=== PATIENT | female | born 1955 | race Caucasian/White ===

== ENCOUNTER 2018-08-25 08:29 | Observation (INO) | payer OTHER ==
[~2018-08-25] VITALS: Ht 170.2 cm; Wt 77.1 kg
--- OUTSIDE RECORDS SUMMARY | 2018-08-25 08:32 | XMS REPORT | Encounter Summary ---
Author Organization Unknown Address [address] [place] [address] Phone [phone] Reason for Visit Medical Complaint Instructions 1. Cough ProAir HFA 90 mcg/actuation aerosol inhaler benzonatate 100 mg capsule cough: care instructions Discussion Note See handout Plan of Care Patient Instructions See handout Reminders Provider Appointments None recorded. Lab None recorded. Referral None recorded. Procedures None recorded. Surgeries None recorded. Imaging None recorded. Medications Name Start Date benzonatate 100 mg capsule clonazepam 0.5 mg tablet TK 1 T PO BID AND BEDTIME PRN escitalopram 20 mg tablet ProAir HFA 90 mcg/actuation aerosol inhaler INHALE 2 PUFFS PO EVERY 4 HOURS Medications Administered None recorded. Vitals Height Weight BMI Blood Pressure 5 ft 6 in 160 lbs 25.8 122/80 Lab Results None recorded. Allergies Name Reaction Severity Onset Penicillins Other Problems Name Status Onset Date Source Cough Active Encounter Procedures Date Name Performed by 08/24/1989 Hysterectomy Information not available Vaccine List None recorded. Social History Smoking Status Never Smoker Past Encounters 06/07/2016 Cough Leonel Greene, [facility]: [address] [place] [address], Ph. History of Present Illness Cough Reported By: Patient HPI: Location: chest, nasal/sinus. Quality: congested, dry cough. Duration: symptoms lasting over 2 weeks. Severity: mild. Onset/Timing: gradual. Context: no sick contacts, no foreign travel, non-smoker. Modifying factors: OTC medication. Associated Symptoms: no sputum production, no sweats, no significant weight gain, no significant weight loss, no morning cough, no vomiting, no diarrhea, no rash, no nausea, chest pain, shortness of breath, wheezing Notes: Highest fever reported 100.0 Review of Systems:ROS as noted in the HPI Review of Systems Basic Reported By: Patient Physical Exam Adult Basic Reported By: Patient Constitutional: General Appearance: healthy-appearing, well-nourished, well-developed. Level of Distress: NAD. Ambulation: ambulating normally Psychiatric: Mental Status: active and alert. Orientation: to time, to place, to person Eyes: Lids and Conjunctivae: non-injected, no discharge, no pallor. Pupils: PERRLA. Corneas: grossly intact. EOM: EOMI. Lens: clear. Sclerae: non-icteric. Vision: acuity grossly intact Ata-Wkca-Yjopd-Throat: Ears: no lesions on external ear, no outer ear tenderness, EACs clear, TMs clear. Hearing: no hearing loss. Nose: no lesions on external nose, nares patent, no septal deviation, nasal passages clear, no sinus tenderness, no nasal discharge. Lips, Teeth, and Gums: no mouth or lip ulcers, no bleeding gums, normal dentition. Oropharynx: moist mucous membranes, no erythema, no exudates, tonsils not enlarged Neck: Lymph Nodes: no cervical LAD, no supraclavicular LAD Lungs: Respiratory effort: no dyspnea, no tachypnea, no use of accessory muscles, no intercostal retractions. Auscultation: inspiratory wheezing Cardiovascular: Heart Auscultation: RRR, no murmurs Neurologic: Gait and Station: normal gait, normal station Skin: Inspection and palpation: no rash, no lesions, no ulcer, no abnormal nevi, no induration, no nodules, good turgor, no jaundice
--- OUTSIDE RECORDS SUMMARY | 2018-08-25 08:32 | XMS REPORT | Encounter Summary ---
Author Organization Unknown Address [address] [place] [address] Phone [phone] Reason for Visit Medical Complaint Instructions 1. Upper respiratory infection upper respiratory infection (cold): care instructions rapid flu (A+B) 2. Feeling feverish 3. Headache headache: care instructions Discussion Note Pt is in NAD; Verbalizes understanding of all instructions with no questions at this time. Plan of Care Patient Instructions Take over the counter fluticasone as needed for nasal congestion and runny nose. Canon one spray in each nostril twice a day. Take a warm, steamy shower, blow your nose thereafter, and spray in each nostril. Tilt your head up for about 10 seconds and breath through your mouth. Do not sniff or snort the medication in or else the medication will go to your throat and not be absorbed appropriately. Alternate with Ibuprofen (advil) and acetaminophen (tylenol) every 4hrs as needed for pain/fever/headache. Proper hydration and rest.Do not share any utensils/cups, no kissing, recommend hand washing after coughing/sneezing/blowing nose and cover face when you do so Take medications as prescribed. Return to clinic or follow up with your PCP within 2-3 days if symptoms worsen as discussed. Reminders Provider Appointments None recorded. Lab Rapid Flu (A+B) 03/20/2017 [facility] Referral None recorded. Procedures None recorded. Surgeries None recorded. Imaging None recorded. Medications Name Start Date Enstilar 0.005 %-0.064 % topical foam MAMADOU UTD BID TO RASH ON LEGS ergocalciferol (vitamin D2) 50,000 unit capsule escitalopram 20 mg tablet levocetirizine 5 mg tablet meloxicam 7.5 mg tablet TK 1 T PO QD WITH FOOD mupirocin 2 % topical ointment Prevnar 13 (PF) 0.5 mL intramuscular syringe ADM 0.5ML IM UTD ProAir HFA 90 mcg/actuation aerosol inhaler INHALE 2 PUFFS PO EVERY 4 HOURS valacyclovir 1 gram tablet Medications Administered None recorded. Vitals Height Weight BMI Blood Pressure 5 ft 6 in 165 lbs 26.6 kg/m2 114/70 mm[Hg] Lab Results Date Name Specimen Result Interpretation Description Value Range Status Address Rapid Flu (A+B) Influenza a negative [facility]: [address] [place] [address] Influenza B negative [facility]: [facility] Allergies Code Code System Name Reaction Severity Onset Penicillins Other Problems Name Status Onset Date Source Cough Active Encounter Procedures Date Name Performed by 08/24/1989 Hysterectomy Information not available Vaccine List Vaccine Type influenza, unspecified formulation 08/24/2016 pneumococcal, unspecified formulation 01/22/2017 Social History Smoking Status Never Smoker Past Encounters 03/20/2017 Upper Respiratory Infection; Feeling Feverish; Headache Candida Javed [facility]: [address] [place] [address], Ph. History of Present Illness Headache Reported By: Patient HPI: Location: frontal. Quality: not the worst headache ever, similar to previous headaches, throbbing. Severity: moderate, pain level 6/10. Duration: intermittent. Onset/Timing: worse, gradual. Context: not related to trauma. Modifying factors: sleep, rest. Associated Symptoms: no vomiting, no sensitivity to light, tearing/watery eyes, no confusion, no slurred speech, no preceeding aura, no double vision, normal feeling/sensation, no motor paralysis, no dizziness, no sleep disturbances, no nosebleeds, no hoarseness, no sore throat, no hearing loss, fever/chills, muscle aches, headache; rhinorrhea Jumbfua-Tndld-Umi Reported By: Patient HPI: Duration: 2 days. Severity: subjective temperature. Context: no ill contacts, no tick/insect bites, no recent travel, no new medications. Associated Symptoms: no rash, no lethargy, fever/chills, headache, muscle aches, cold symptoms, tired (fatigue), nasal discharge. Modifying Factors nothing gives relief Note:
Review of Systems:ROS as noted in the HPI Review of Systems Basic Reported By: Patient Physical Exam Adult Basic, Adult Female Complete, Adult Male Complete Reported By: Patient Constitutional: General Appearance: healthy-appearing, well-nourished, well-developed. Level of Distress: NAD. Ambulation: ambulating normally Psychiatric: Mental Status: active and alert. Orientation: to time, to place, to person Eyes: Lids and Conjunctivae: non-injected, no discharge, no pallor. Pupils: PERRLA. Corneas: grossly intact. EOM: EOMI. Lens: clear Mqx-Wvgt-Xtaaa-Throat: Ears: no lesions on external ear, no outer ear tenderness, EACs clear, TMs clear. Nose: no lesions on external nose, nares patent, no septal deviation, nasal passages clear, no sinus tenderness, nasal d ischarge--rhinorrhea, post nasal drip. Lips, Teeth, and Gums: no mouth or lip ulcers, no bleeding gums, normal dentition. Oropharynx: moist mucous membranes, no erythema, no exudates, tonsils not enlarged Neck: Neck: supple, FROM; Negative Brudinski's sign. Lymph Nodes: anterior cervical LAD Lungs: Respiratory effort: no dyspnea, no tachypnea, no use of accessory muscles, no intercostal retractions. Auscultation: breath sounds normal, good air movement Cardiovascular: Heart Auscultation: RRR, no murmurs Neurologic: Gait and Station: normal gait, normal station. Cranial Nerves: grossly intact. Sensation: grossly intact. Reflexes: DTRs 2+ bilaterally throughout; Negative Kernig's sign. Coordination and Cerebellum: [id number]-jt-tghy intact
--- OUTSIDE RECORDS SUMMARY | 2018-08-25 08:32 | XMS REPORT | Continuity of Care Document ---
Author Author [facility] Interface Address Unknown Phone Unavailable Problems Problem Status Onset Date Classification Date Reported Comments Source CCL/ LHC Active 05/24/2018 [facility] Z12.31 - ENCNTR SCREEN MAMMOGRAM FOR MA Active 04/13/2018 [facility] Upper respiratory infection 03/20/2017 Diagnosis 03/20/2017 [facility] Feeling feverish 03/20/2017 Diagnosis 03/20/2017 [facility] Headache 03/20/2017 Diagnosis 03/20/2017 [facility] Cough Problem 03/20/2017 [facility] Medications Medication Details Route Status Patient Instructions Ordering Provider Order Date Source betamethasone dipropionate 0.643 MG/ML / calcipotriene 0.05 MG/ML Topical Foam [Enstilar] Enstilar 0.005 %-0.064 % topical foam MAMADOU UTD BID TO RASH ON LEGS Active [facility] Ergocalciferol 47658 UNT Oral Capsule ergocalciferol (vitamin D2) 50,000 unit capsule Active [facility] Escitalopram 20 MG Oral Tablet escitalopram 20 mg tablet Active [facility] levocetirizine dihydrochloride 5 MG Oral Tablet levocetirizine 5 mg tablet Active [facility] meloxicam 7.5 MG Oral Tablet meloxicam 7.5 mg tablet TK 1 T PO QD WITH FOOD Active [facility] Mupirocin 0.02 MG/MG Topical Ointment mupirocin 2 % topical ointment Active [facility] 0.5 ML Streptococcus pneumoniae serotype 1 capsular antigen diphtheria [id number] protein conjugate vaccine 0.0044 MG/ML / Streptococcus pneumoniae serotype 14 capsular antigen diphtheria [id number] protein conjugate vaccine 0.0044 MG/ML / Streptococcus pneumoniae serotype 18C capsular antigen diphtheria [id number] protein conjugate vaccine 0.0044 MG/ML / Streptococcus pneumoniae serotype 19A capsular antigen d iphtheria QOE375 protein conjugate vaccine 0.0044 MG/ML / Streptococcus pneumoniae serotype 19F capsular antigen diphtheria [id number] protein conjugate vaccine 0.0044 MG/ML / Streptococcus pneumoniae serotype 23F capsular antigen diphtheria PHW715 protein conjugate vaccine 0.0044 MG/ML / Streptococcus pneumoniae serotype 3 capsular antigen diphtheria CMY534 protein conjugate vaccine 0.0044 MG/ML / Streptococcus pneumoniae serotype 4 capsular antigen diphtheria EQG510 protein conjugate vaccine 0.0044 MG/ML / Streptococcus pneumoniae serotype 5 capsular antigen diphtheria SWO767 protein conjugate vaccine 0.0044 MG/ML / Streptococcus pneumoniae serotype 6A capsular antigen diphtheria VVA061 protein conjugate vaccine 0.0044 MG/ML / Streptococcus pneumoniae serotype 6B capsular antigen diphtheria WCA403 protein conjugate vaccine 0.0088 MG/ML / Streptococcus pneumoniae serotype 7F capsular antigen diphtheria [id number] protein conjugate vaccine 0.0044 MG/ML / Streptococcus pneumoniae serotype 9V capsular antigen diphtheria [id number] protein conjugate vaccine 0.0044 MG/ML Prefilled Syringe [Prevnar 13] Prevnar 13 (PF) 0.5 mL intramuscular syringe ADM 0.5ML IM UTD Active [facility] 200 ACTUAT Albuterol 0.09 MG/ACTUAT Metered Dose Inhaler [ProAir] ProAir HFA 90 mcg/actuation aerosol inhaler INHALE 2 PUFFS PO EVERY 4 HOURS Active [facility] valacyclovir 1000 MG Oral Tablet valacyclovir 1 gram tablet Active [facility] benzonatate 100 MG Oral Capsule benzonatate 100 mg capsule Active [facility] Clonazepam 0.5 MG Oral Tablet clonazepam 0.5 mg tablet TK 1 T PO BID AND BEDTIME PRN Active [facility] Allergies, Adverse Reactions, Alerts Substance Category Reaction Severity Reaction type Status Date Reported Comments Source Penicillins Other Allergy to substance 06/07/2016 [facility] Immunizations Immunization Date Given Site Status Last Updated Comments Source pneumococcal, unspecified formulation 01/22/2017 completed [facility] influenza, unspecified formulation 08/24/2016 completed [facility] Results Order Name Results Value Reference Range Date Interpretation Comments Source Breast Complete Uni US Breast Complete Uni US COMPLETE ULTRASOUND OF LEFT BREAST AND AXILLA: 05/24/2018 CLINICAL: /R92.8 Other Abnormal And Inconclusive Findings On Diagnostic Imaging Of Breast. COMPARISON:Comparison is made to exams dated: 05/24/2018 mammogram and 05/06/2018 mammogram - [facility]. TECHNIQUE: Color flow and real-time ultrasound of the left breast four quadrants and axilla regions were performed on the areas of interest. FINDINGS: There is a 0.9 cm x 0.7 cm x 0.5 cm cluster of cysts in the left breast at 3 o'clock anterior depth 4 cm from the nipple. This correlates with mammography findings. Color flow imaging demonstrates that there is no vascularity present. No abnormalities were seen sonographically in the left axilla. IMPRESSION: PROBABLY BENIGN RECOMMENDATION:The 0.9 cm x 0.7 cm x 0.5 cm cluster of cysts in the left breast is probably benign. A follow-up ultrasound in 6 months is recommended to demonstrate stability.(11/23/2018) This exam was interpreted at [id number] for [facility]. Professional services are provided by the [facility] M[facility] Division of Diagnostic Imaging. Rico Alegria M.D., cm/penrad:05/24/2018 14:16:37 [employer] Electrical Designer(s): Erika Shoemaker [facility] letter sent: BI-RADS 3 Ultrasound BI-RADS: 3 Probably benign 05/24/2018 - - Read by: Nils Gomez MD Dictated Date/time: 05/24/18 14:16 Electronically Signed by: Nils Gomez MD 05/24/18 14:16 FINAL REPORT DAISY [facility] Breast Mammo Diag UNI incl CAD MA Breast Mammo Diag UNI incl CAD MA UNILATERAL LEFT DIGITAL DIAGNOSTIC MAMMOGRAM WITH CAD: 05/24/2018 CLINICAL: R92.8 Other Abnormal And Inconclusive Findings On Diagnostic Imaging Of Breast/R92.8 Other Abnormal And Inconclusive Findings On Diagnostic Imaging Of Breast. Current study was evaluated with a Computer Aided Detection (CAD) system. COMPARISON:Comparison is made to exam dated: 05/06/2018 mammogram - [facility]. TECHNIQUE: Mammographic views were obtained using digital acquisition. Current study was also evaluated with a Computer Aided Detection (CAD) system. FINDINGS: There are scattered fibroglandular densities in left breast. There is an 8 mm oval equal density mass with an indistinct margin in the left breast at 3 o'clock middle depth 5 cm from the nipple. No other significant masses or calcifications are seen in the breast. IMPRESSION: INCOMPLETE: NEEDS ADDITIONAL IMAGING EVALUATION RECOMMENDATION:The 8 mm oval equal density mass in the left breast is indeterminate. An ultrasound is recommended. This exam was interpreted at [id number] for [facility] [place], SL 15. Professional services are provided by the [facility] Division of Diagnostic Imaging. Rico Alegria M.D. cm/penrad:05/24/2018 14:15:30 [employer] Electrical Designer(s): Andria Reardon RT(R)(M), [facility] Mammogram BI-RADS: 0 Indeterminate 05/24/2018 - - Read by: Nils Gomez MD Dictated Date/time: 05/24/18 14:15 Electronically Signed by: Nils Gomez MD 05/24/18 14:15 FINAL REPORT BRANDON DAISY Cerda Breast Mammo Scrn CITLALY incl CAD MA Breast Mammo Scrn CITLALY incl CAD MA BILATERAL DIGITAL SCREENING MAMMOGRAM WITH CAD: 05/06/2018 CLINICAL: Encounter For Screening Mammogram For Malignant Neoplasm Of Breast/Z12.31. Current study was evaluated with a Computer Aided Detection (CAD) system. COMPARISON:No prior exams were available for comparison. TECHNIQUE: Mammographic views were obtained using digital acquisition. Current study was also evaluated with a Computer Aided Detection (CAD) system. FINDINGS: There are scattered fibroglandular densities in both breasts. There is an 8 mm oval equal density mass with an indistinct margin in the left breast at 2 o'clock middle depth 5 cm from the nipple. No other significant masses, calcifications, or other findings are seen in either breast. IMPRESSION: INCOMPLETE: NEEDS ADDITIONAL IMAGING EVALUATION RECOMMENDATION:The 8 mm oval equal density mass in the left breast is indeterminate. Diagnostic mammography views as well as an ultrasound are recommended unless previous films are received and show no significant interval change. This exam was interpreted at [id number] for [facility] 15. Professional services are provided by the [facility] Division of Diagnostic Imaging. Rico Alegria M.D. cm/penrad:05/06/2018 08:45:28 [employer]oc[employer] Electrical Designer(s): RT Al[facility](R)(M), [facility] [place] sent: BI-RADS 0 Mammogram BI-RADS: 0 Indeterminate 05/06/2018 - - Read by: Nils Gomez MD Dictated Date/time: 05/06/18 08:45 Electronically Signed by: Nils Gomez MD 05/06/18 08:45 FINAL REPORT MH DAISY [facility] Influenza A negative 03/20/2017 [facility] Influenza B negative 03/20/2017 [facility] Vital Signs Vital Sign Value Date Comments Source Diastolic (mm Hg) 70 03/20/2017 [facility] Height 66 03/20/2017 [facility] Systolic (mm Hg) 114 03/20/2017 [facility] Weight 165 03/20/2017 [facility] Diastolic (mm Hg) 80 06/07/2016 [facility] Height 66 06/07/2016 [facility] Systolic (mm Hg) 122 06/07/2016 [facility] Weight 160 06/07/2016 [facility] Encounters Location Location Details Encounter Type Encounter Number Reason For Visit Attending Provider ADM Date DC Date Status Source [place] - [facility] - [id number] Rodas: [address] [place] [address], Ph. [id number] Leonel Greene 06/07/2016 [facility] [place] - [facility] [id number] FRANCOISE [facility]: [address] [place] [address], Ph. [id number] Candida Javed 03/20/2017 [facility] Procedures Procedure Code Date Perfomer Comments Source Hysterectomy 08/24/1989 [facility]
[2018-08-25] MEDS ORDERED: SODIUM CHLORIDE 0.9% 1000ML 1,000 ML IV STA (08:51)
[2018-08-25 09:31] LABS: BASOPHILS # (AUTO) 0.1 (0.0-0.1); BASOPHILS % 0.6 % (0.0-1.0); EOSINOPHILS # (AUTO) 0.1 (0.0-0.4); EOSINOPHILS % 1.5 % (0.0-6.0); HEMATOCRIT 38.6 % (34.2-44.1); HEMOGLOBIN 13.1 g/dL (12.0-16.0); LYMPHOCYTES # (AUTO) 1.4 (1.0-3.2); LYMPHOCYTES % 16.3 % (18.0-39.1); MEAN CORPUSCULAR HEMOGLOBIN 30.7 pg (28-32); MEAN CORPUSCULAR HGB CONC 33.9 g/dL (31-35); MEAN CORPUSCULAR VOLUME 90.4 fL (81-99); MONOCYTES # (AUTO) 0.8 (0.2-0.8); MONOCYTES % 8.6 % (4.4-11.3); NEUTROPHILS # (AUTO) 6.4 (2.1-6.9); NEUTROPHILS % 72.8 % (38.7-80.0); PLATELET COUNT 247 x10e3/uL (140-360); RED BLOOD COUNT 4.27 x10e6/uL (3.6-5.1); RED CELL DISTRIBUTION WIDTH 13.8 % (11.7-14.4)
[2018-08-25] MEDS ORDERED: KEPPRA500 MG PO (09:31)
[2018-08-25] MEDS ORDERED: FOLIC ACID1 MG PO (09:31)
[2018-08-25] MEDS ORDERED: LEVAQUIN500 MG PO (09:31)
[2018-08-25] MEDS ORDERED: PHENYTOIN SODI300 MG PO (09:31)
[2018-08-25] MEDS ORDERED: METHOTREXATE2.5 MG PO (09:31)
[2018-08-25 09:44] LABS: INR 1.04; PROTHROMBIN TIME 14.5 seconds (11.9-14.5)
[2018-08-25 09:45] LABS: PARTIAL THROMBOPLASTIN TIME 25.5 seconds (23.8-35.5)
[2018-08-25 09:53] LABS: ACETAMINOPHEN < 3 ug/mL (10-30); SALICYLATE < 5.0 mg/dL (0-30)
[2018-08-25 09:55] LABS: ALANINE AMINOTRANSFERASE 22 IU/L (0-55); ALBUMIN 3.5 g/dL (3.5-5.0); ALKALINE PHOSPHATASE 54 IU/L (40-150); ANION GAP 17.2 mmol/L (8-16); BLOOD UREA NITROGEN 13 mg/dL (7-26); BUN/CREATININE RATIO 17 (6-25); CALCIUM 9.1 mg/dL (8.4-10.2); CARBON DIOXIDE 21 mmol/L (22-29); CHLORIDE 104 mmol/L (98-107); CREATINE KINASE 100 IU/L (29-168); CREATININE, SERUM 0.75 mg/dL (0.57-1.11); EST GLOMERULAR FILTRATION RATE > 60 ML/MIN (60-); GLUCOSE 71 mg/dL (74-118); MAGNESIUM 2.1 MG/DL (1.3-2.1); POTASSIUM 3.2 mmol/L (3.5-5.1); SODIUM 139 mmol/L (136-145)
--- NOTE | 2018-08-25 10:09 | Diagnostic Imaging Report ---
EXAMINATION: CHEST SINGLE (PORTABLE) INDICATION: Altered mental status, shortness of breath. COMPARISON: None FINDINGS: TUBES and LINES: None. LUNGS: Lungs are well inflated. There is mild patchy left basilar opacity. No evidence of lobar consolidation or pulmonary edema. PLEURA: No pleural effusion or pneumothorax. HEART AND MEDIASTINUM: The cardiomediastinal silhouette is unremarkable. BONES AND SOFT TISSUES: No acute osseous lesion. Soft tissues are unremarkable. UPPER ABDOMEN: No free air under the diaphragm. IMPRESSION: Mild patchy left basilar opacity, likely atelectasis. However aspiration can have a similar appearance in the appropriate clinical context. Signed by: Dr. Edwardo De La Torre MD on 08/25/2018 10:06 AM
[2018-08-25 10:15] LABS: THYROID STIMULATING HORMONE 0.973 uIU/mL (0.350-4.940)
--- NOTE | 2018-08-25 10:19 | Diagnostic Imaging Report ---
Exam: Head CT without contrast History: Altered mental status, seizures Comparison studies: Head CT 05/26/2015. Technique: Axial images were obtained from the skull base to the vertex. Coronal and sagittal images reconstructed from the axial data. Dose modulation, iterative reconstruction, and/or weight based adjustment of the mA/kV was utilized to reduce the radiation dose to as low as reasonably achievable. Radiation dose: Total DLP: 921 mGy*cm. Estimated effective dose: DLP x 0.015 Intravenous contrast: None Findings: Scalp: No abnormalities. Bones: No fractures, blastic or lytic lesions. Brain sulci: Appropriate for age. Ventricles: Normal in size and configuration. No hydrocephalus. Extra-axial spaces: No masses, no fluid collection. Parenchyma neck axial spaces: Ill-defined 1.4 cm lesion in the left anteromedial temporal lobe is slightly hyperintense to harris matter and is without surrounding edema and does not result in significant mass effect. Unclear if this is an intra-axial cortical based lesion or possibly extra-axial arising from the tentorium. Diagnostic considerations would include cortical-based primary NURSING EDUCATION SPECIALIST neoplasm, meningioma (if extra-axial axial) or possibly small vascular malformation. Metastasis is felt less likely in the absence of significant surrounding edema. In the context of lesion hyperdensity, lymphoma is also a consideration. No other mass, acute hemorrhage or acute cortical vascular infarcts. Sellar/suprasellar region: No abnormalities. Craniocervical junction: Patent foramen magnum. No Chiari one malformation. IMPRESSION: 1. New nonspecific 1.4 cm left anteromedial occipital lobe lesion without surrounding edema or mass effect as described. Recommend brain MRI with IV contrast to further evaluate. 2. No other intracranial abnormalities or significant changes from the prior head CT of 05/26/2015. Signed by: Dr. Donn Noble M.D. on 08/25/2018 10:16 AM
[2018-08-25 10:58] LABS: ERYTHROCYTE SEDIMENTATION RATE 16 mm/hr (0-20)
[2018-08-25] MEDS ORDERED: D5.45%NS/KCL 20MEQ 1,000 ML IV ONE (11:30)
[2018-08-25 12:01] LABS: BILIRUBIN,URINE 1+ (NEGATIVE); CLARITY,URINE SL CLOUDY (CLEAR); COLOR,URINE YELLOW (YELLOW); KETONES,URINE 2+ (NEGATIVE); LEUKOCYTE ESTERASE ,URINE NEGATIVE (NEGATIVE); NITRITE,URINE NEGATIVE (NEGATIVE); PROTEIN,URINE DIPSTICK NEGATIVE (NEGATIVE); URINE UROBILINOGEN 0.2 mg/dL (0.2 - 1)
[2018-08-25 12:02] LABS: AMPHETAMINES SCREEN,URINE POSITIVE (NEGATIVE); BENZODIAZEPINES SCREEN,URINE POSITIVE (NEGATIVE); PHENCYCLIDINE SCREEN,URINE NEGATIVE (NEGATIVE)
[2018-08-25] MEDS ORDERED: GADOBENATE DIMEGLUMINE 1 ML IV ONE (12:20)
--- NOTE | 2018-08-25 12:25 | NUR ---
DR BILLINGS AT BEDSIDE FOR RE-EVAL AND DISCUSSING THE CURRENT PLAN OF CARE WITH PATIENT AND FAMILY, VERBALIZED UNDERSTANDING. NO SIGNS OF ACUTE DISTRESS NOTED AT THIS TIME.
[2018-08-25] MEDS ORDERED: HYDROCODONE/APAP 7.5MG-325MG 1 EA TAB PO PRN (12:30)
[2018-08-25] MEDS ORDERED: ONDANSETRON HCL INJ 2 MG/ML VIAL IV PRN (12:30)
--- OUTSIDE RECORDS SUMMARY | 2018-08-25 12:40 | XMS REPORT ---
[facility] Address Unknown Phone Unavailable Care Team Providers Care Manager Company Name Role Phone Dara BILLIGNS Unavailable Unavailable Problems This patient has no known problems. Allergies, Adverse Reactions, Alerts This patient has no known allergies or adverse reactions. Medications This patient has no known medications. Results Test Description Test Time Test Comments Text Results Atomic Results Result Comments CT BRAIN WO 2018-08-25 10:03:00 [place] [address] Patient Name: LUÍS ADRIAN MR #: [id number] : 1955 Age/Sex: 62/F Req #: [id number] Adm Physician: Ordered by: REINALDO BILLINGS MD Report #: [id number] Location: ER Room/Bed: Procedure: [id number] CT/CT BRAIN WO Exam Date: Exam Time: REPORT STATUS: Signed Exam: Head CT without contrast History: Altered mental status, seizures Co mparison studies: Head CT 05/26/2015. Technique: Axial images were obtained from the skull base to the vertex. Coronal and sagittal images reconstructed from the axial data. Dose modulation, iterative reconstruction, and/or weight based adjustment of the mA/kV was utilized to reduce the radiation dose to as low as reasonably achievable. Radiation dose: Total DLP: 921 mGy*cm. Estimated effective dose: DLP x 0.015 Intravenous contrast: None Findings: Scalp: No abnormalities. Bones: No fractures, blastic or lytic lesions. Brain sulci: Appropriate for age. Ventricles: Normal in size and configuration. No hydrocephalus. Extra-axial spaces: No masses, no fluid collection. Parenchyma neck axial spaces: Ill-defined 1.4 cm lesion in the left anteromedial temporal lobe is slightly hyperintense to harris matter and is without surrounding edema and does not result in significant mass effect. Unclear if this is an intra-axial cortical based lesion or possibly extra-axial arising from the tentorium. Diagnostic considerations would include cortical-based primary [employer] neoplasm, meningioma (if extra-axial axial) or possibly small vascular malformation. Metastasis is felt less likely in the absence of significant surrounding edema. In the context of lesion hyperdensity, lymphoma is also a consideration. No other mass, acute hemorrhage or acute cortical vascular infarcts. Sellar/suprasellar region: No abnormalities. Craniocervical junction: Patent foramen magnum. No Chiari one malformation. IMPRESSION: 1. New n onspecific 1.4 cm left anteromedial occipital lobe lesion without surrounding edema or mass effect as described. Recommend brain MRI with IV contrast to further evaluate. 2. No other intracranial abnormalities or significant changes from the prior head CT of 05/26/2015. Signed by: Dr. Cuong Noble M.D. on 08/25/2018 10:16 AM Dictated By: CUONG NOBLE MD 1016 Transcribed By: ROSALINA on 08/25/18 1016 COPY TO: REINALDO BILLINGS MD CHEST SINGLE (PORTABLE) 2018-08-25 10:02:00 [place] [address] Patient Name: LUÍS ADRIAN MR #: [id number] : 1955 Age/Sex: 62/F Req #: [id number] Adm Physician: Ordered by: REINALDO BILLINGS MD Report #: [id number] Location: ER Room/Bed: Procedure: [id number] DX/CHEST SINGLE (PORTABLE) Exam Date: 08/25/18 Exam Time: 0930 REPORT STATUS: Signed EXAMINATION: CHEST SINGLE (PORTABLE) INDICATI ON: Altered mental status, shortness of breath. COMPARISON: None FINDINGS: TUBES and LINES: None. LUNGS: Lungs are well inflated. There is mild patchy left basilar opacity. No evidence of lobar consolidation or pulmonary edema. PLEURA: No pleural effusion or pneumothorax. HEART AND MEDIASTINUM: The cardiomediastinal silhouette is unremarkable. BONES AND SOFT TISSUES: No acute osseous lesion. Soft tissues are unremarkable. UPPER ABDOMEN: No free air under the diaphragm. IMPRESSION: Mild patchy left basilar opacity, likely atelectasis. However aspiration can have a similar appearance in the appropriate clinical context. Signed by: Dr. Anton De La Rosa MD on 08/25/2018 10:06 AM Dictated By: ANTON DE LA ROSA MD 1006 Transcribed By: ROSALINA on 08/25/18 1006 COPY TO: REINALDO BILLINGS MD
--- OUTSIDE RECORDS SUMMARY | 2018-08-25 12:40 | XMS REPORT | Clinical Summary ---
Author Author [employer] Organization [employer] Address Unknown Phone Unavailable Care Team Providers Care Grant Specialist Name Role Phone Nathaniel Wilkins MD PCP Allergies No Known Allergies Medications End Date Status Medication Sig Dispensed Refills Start Date Active folic acid (FOLVITE) 1 MG Take 1 mg by 0 tablet mouth daily. EXCEPT ON METHOTREXATE DAYS 09/22/2018 Active levETIRAcetam (KEPPRA) Take 1 tablet 60 tablet 0 1000 MG tablet (1,000 mg 8 total) by mouth 2 (two) times a day for 30 days. 09/22/2018 Active phenytoin (DILANTIN) 300 Take 1 30 capsule 0 MG ER capsule capsule (300 8 mg total) by mouth nightly for 30 days. 08/26/2018 Active levoFLOXacin (LEVAQUIN) Take 1 tablet 3 tablet 0 500 MG tablet (500 mg 8 total) by mouth daily for 3 days. 08/23/2018 Discontinued methotrexate 2.5 MG Take by mouth 0 tablet once a week. TAKE 6 TABS BY MOUTH EVERY WEEK Active Problems Problem Noted Date Nonintractable epilepsy with complex partial seizures 08/20/2018 Seizure 08/20/2018 Hypoxemia 08/20/2018 Delirium 08/20/2018 Encephalopathy 08/20/2018 Encounters Care Team Description Date Type Specialty Vanessa Lara, Vernon Mulligan, Yosvany Duran MD Seizure (HCC) (Primary Dx); Acute encephalopathy; Urinary tract infection without hematuria, site unspecified; Acute respiratory failure with hypoxia (HCC); Encephalopathy; Partial symptomatic epilepsy with complex partial seizures, not intractable, without status epilepticus (HCC) 08/20/2018 [facility] General Internal Medicine - Encounter 08/23/2018 Hoang Larry RT 08/20/2018 Orders Only Radiology after 08/24/2017 Immunizations Name Dates Previously Given Next Due FLUCELVAX QUAD PF (0.5mL 08/23/2018 syringe) Family History Medical History Relation Name Comments COPD Father Stroke Mother Relation Name Status Comments Father Mother Social History Date Tobacco Use Types Packs/Day Years Used Former Smoker Cigarettes Smokeless Tobacco: Never Used Comments: quit over 10 years ago Alcohol Use Drinks/Week oz/Week Comments Yes 1 Cans of 0.6 beer Alcohol Habits Answer Date Recorded How often do you have a drink containing alcohol? Not asked How many drinks containing alcohol do you have on Not asked a typical day when you are drinking? How often do you have six or more drinks on one Daily or almost daily 08/20/2018 occasion? Sex Assigned at Date Recorded Not on file Industry Job Start Date Occupation Not on file Not on file Not on file Travel End Travel History Travel Start No recent travel history available. Last Filed Vital Signs Time Taken Vital Sign Reading 08/23/2018 8:13 AM [employer] Blood Pressure 150/72 08/23/2018 8:24 AM [employer] DIRECTOR Pulse 81 08/23/2018 8:13 AM [employer] DIRECTOR Temperature 36.7 C (98 F) 08/23/2018 8:24 AM [employer] DIRECTOR Respiratory Rate 17 08/23/2018 8:13 AM [employer] DIRECTOR Oxygen Saturation 93% - Inhaled Oxygen - Concentration 08/20/2018 6:07 PM [employer] DIRECTOR Weight 80.8 kg (178 lb 2.1 oz) 08/20/2018 6:07 PM [employer] DIRECT[employer] Height 172.7 cm (5' 8") 08/20/2018 6:07 PM [employer] DIRECTOR Body Mass Index 27.08 Plan of Treatment Health Maintenance Due Date Last Done Comments CERVICAL CANCER SCREENING 1978 BREAST CANCER SCREENING 2007 COLON CANCER SCREENING 2007 SHINGLES VACCINES (1 of 2007 2) INFLUENZA VACCINE Completed 08/23/2018, 08/24/2016 Procedures Comments Procedure Name Priority Date/Time Associated Diagnosis VANCOMYCIN LEVEL, TROUGH Timed 08/23/2018 5:40 AM [employer] DIRECTOR ESTIMATED GFR Routine 08/23/2018 5:40 AM [employer] DIRECTOR IONIZED CALCIUM Routine 08/23/2018 5:40 AM [employer] DIRECTOR PHOSPHORUS LEVEL Routine 08/23/2018 5:40 AM [employer] DIRECTOR HC COMPLETE BLD COUNT Routine 08/23/2018 W/AUTO DIFF 5:40 AM [employer] DIRECTOR MAGNESIUM LEVEL Routine 08/23/2018 5:40 AM [employer] DIRECTOR BASIC METABOLIC PANEL Routine 08/23/2018 5:40 AM [employer] DIRECTOR POC GLUCOSE Routine 08/22/2018 12:40 PM [employer] DIRECTOR EEG VIDEO MONITORING Routine 08/22/2018 11:17 AM [employer] DIRECTOR EEG VIDEO MONITORING Routine 08/22/2018 11:16 AM [employer] DIRECTOR POC GLUCOSE Routine 08/22/2018 8:47 AM [employer] DIRECTOR POC GLUCOSE Routine 08/22/2018 4:46 AM [employer] DIRECTOR PHENYTOIN LEVEL Routine 08/22/2018 4:40 AM [employer] DIRECTOR ESTIMATED GFR Routine 08/22/2018 4:40 AM [employer] DIRECTOR VANCOMYCIN LEVEL, TROUGH Timed 08/22/2018 4:40 AM [employer] DIRECTOR MAGNESIUM LEVEL Routine 08/22/2018 4:40 AM [employer] DIRECTOR BASIC METABOLIC PANEL Routine 08/22/2018 4:40 AM [employer] DIRECTOR IONIZED CALCIUM Routine 08/22/2018 4:40 AM [employer] DIRECTOR HC COMPLETE BLD COUNT Routine 08/22/2018 W/AUTO DIFF 4:40 AM [employer] DIRECTOR PHOSPHORUS LEVEL Routine 08/22/2018 4:40 AM [employer] DIRECTOR XR CHEST 1 VW PORTABLE Routine 08/22/2018 2:48 AM [employer] DIRECTOR POC GLUCOSE Routine 08/22/2018 12:40 AM [employer] DIRECTOR POC GLUCOSE Routine 08/21/2018 9:12 PM [employer] DIRECTOR POC GLUCOSE Routine 08/21/2018 4:54 PM [employer] DIRECTOR ARTERIAL BLOOD GAS Routine 08/21/2018 4:22 PM [employer] DIRECTOR POC GLUCOSE Routine 08/21/2018 2:33 PM [employer] DIRECTOR MRI BRAIN W WO CONTRAST STAT 08/21/2018 2:19 PM [employer] DIRECTOR ARTERIAL BLOOD GAS Routine 08/21/2018 11:35 AM [employer] DIRECTOR POC GLUCOSE Routine 08/21/2018 9:17 AM [employer] DIRECTOR XR CHEST 1 VW PORTABLE Routine 08/21/2018 6:05 AM [employer] DIRECTOR LACTIC ACID LEVEL Routine 08/21/2018 5:30 AM [employer] DIRECTOR POC GLUCOSE Routine 08/21/2018 5:07 AM [employer] DIRECTOR ARTERIAL BLOOD GAS Routine 08/21/2018 4:40 AM [employer] DIRECTOR PHENYTOIN LEVEL Routine 08/21/2018 1:21 AM [employer] DIRECTOR ESTIMATED GFR Routine 08/21/2018 1:21 AM [employer] DIRECTOR MAGNESIUM LEVEL Routine 08/21/2018 1:21 AM [employer] DIRECTOR BASIC METABOLIC PANEL Routine 08/21/2018 1:21 AM [employer] DIRECTOR IONIZED CALCIUM Routine 08/21/2018 1:21 AM [employer] DIRECTOR HC COMPLETE BLD COUNT Routine 08/21/2018 W/AUTO DIFF 1:21 AM [employer] DIRECTOR PHOSPHORUS LEVEL Routine 08/21/2018 1:21 AM [employer] DIRECTOR LACTIC ACID LEVEL, SEPSIS Timed 08/21/2018 - NOW AND REPEAT 2X EVERY 1:21 AM [employer] DIRECTOR 3 HOURS POC GLUCOSE Routine 08/21/2018 1:03 AM [employer] DIRECTOR LACTIC ACID LEVEL, SEPSIS Timed 08/20/2018 - NOW AND REPEAT 2X EVERY 9:55 PM [employer] DIRECTOR 3 HOURS INTUBATION Routine 08/20/2018 Encephalopathy 9:39 PM [employer] DIRECTOR ARTERIAL BLOOD GAS Routine 08/20/2018 9:35 PM [employer] DIRECTOR METHOTREXATE LEVEL Routine 08/20/2018 9:10 PM [employer] DIRECTOR ARTERIAL BLOOD GAS STAT 08/20/2018 6:30 PM [employer] DIRECTOR EEG SLEEP/COMA Routine 08/20/2018 6:16 PM [employer] DIRECTOR ARTERIAL BLOOD GAS STAT 08/20/2018 6:05 PM [employer] DIRECTOR XR CHEST 1 VW PORTABLE STAT 08/20/2018 5:08 PM [employer] DIRECTOR BLOOD CULTURE, AEROBIC & Routine 08/20/2018 ANAEROBIC 4:20 PM [employer] DIRECTOR BLOOD CULTURE, AEROBIC & Routine 08/20/2018 ANAEROBIC 4:13 PM [employer] DIRECTOR SYPHILIS TREPONEMAL IGG Routine 08/20/2018 4:10 PM [employer] DIRECTOR XR CHEST 1 VW PORTABLE STAT 08/20/2018 3:57 PM [employer] DIRECTOR LACTIC ACID LEVEL, SEPSIS Timed 08/20/2018 - NOW AND REPEAT 2X EVERY 3:40 PM [employer] DIRECTOR 3 HOURS RAPID HIV 1 & 2 Routine 08/20/2018 3:40 PM [employer] DIRECTOR SEDIMENTATION RATE Routine 08/20/2018 3:40 PM [employer] DIRECTOR VITAMIN B12 LEVEL Routine 08/20/2018 3:40 PM [employer] DIRECTOR AMMONIA LEVEL Routine 08/20/2018 3:40 PM [employer] DIRECTOR HERPES SIMPLEX VIRUS BY Routine 08/20/2018 PCR 3:40 PM [employer] DIRECTOR VARICELLA ZOSTER BY PCR Routine 08/20/2018 3:40 PM [employer] DIRECTOR GLUCOSE LEVEL, CSF Routine 08/20/2018 3:20 PM [employer] DIRECTOR PROTEIN, CSF Routine 08/20/2018 3:20 PM [employer] DIRECTOR CSF CELL COUNT WITH Routine 08/20/2018 DIFFERENTIAL 3:20 PM [employer] DIRECTOR GRAM STAIN Routine 08/20/2018 3:20 PM [employer] DIRECTOR CSF CULTURE Routine 08/20/2018 3:20 PM [employer] DIRECTOR THYROID STIMULATING Routine 08/20/2018 HORMONE 1:59 PM [employer] DIRECTOR ALCOHOL LEVEL, BLOOD STAT 08/20/2018 1:59 PM [employer] DIRECTOR SALICYLATE LEVEL STAT 08/20/2018 1:59 PM [employer] DIRECTOR ACETAMINOPHEN LEVEL STAT 08/20/2018 1:59 PM [employer] DIRECTOR ECG 12-LEAD STAT 08/20/2018 1:56 PM [employer] DIRECTOR URINALYSIS SCREEN AND STAT 08/20/2018 MICROSCOPY, WITH REFLEX 1:44 PM [employer] DIRECTOR TO CULTURE URINE DRUGS OF ABUSE STAT 08/20/2018 SCREEN 1:44 PM [employer] DIRECTOR GRAM STAIN STAT 08/20/2018 1:44 PM [employer] DIRECTOR URINE CULTURE STAT 08/20/2018 1:44 PM [employer] DIRECTOR CT ANGIOGRAM HEAD W WO STAT 08/20/2018 CONTRAST 1:43 PM [employer] DIRECTOR CT ANGIOGRAM NECK W WO STAT 08/20/2018 CONTRAST 1:42 PM [employer] DIRECTOR CT STROKE BRAIN WO STAT 08/20/2018 CONTRAST 1:22 PM [employer] DIRECTOR TROPONIN STAT 08/20/2018 1:08 PM [employer] DIRECTOR CREATINE KINASE, TOTAL STAT 08/20/2018 (CPK) 1:08 PM [employer] DIRECTOR ESTIMATED GFR STAT 08/20/2018 1:08 PM [employer] DIRECTOR AMMONIA LEVEL STAT 08/20/2018 1:08 PM [employer] DIRECTOR COMPREHENSIVE METABOLIC STAT 08/20/2018 PANEL 1:08 PM [employer] DIRECTOR PROTHROMBIN TIME WITH INR STAT 08/20/2018 1:08 PM [employer] DIRECTOR PARTIAL THROMBOPLASTIN STAT 08/20/2018 TIME (PTT) 1:08 PM [employer] DIRECTOR HC COMPLETE BLD COUNT STAT 08/20/2018 W/AUTO DIFF 1:08 PM [employer] DIRECTOR ECG ED PRELIMINARY Routine 08/20/2018 INTERPRETATION 1:04 PM [employer] DIRECTOR RI SPINAL Routine 08/20/2018 PUNCTURE,LUMBAR,DIAGNOSTI 1:04 PM [employer] DIRECTOR C RI CRITICAL CARE, ADDL 30 Routine 08/20/2018 MIN 1:04 PM [employer] DIRECTOR RI CRITICAL CARE, E/M Routine 08/20/2018 30-74 MINUTES 1:04 PM [employer] DIRECTOR after 08/24/2017 Results * Estimated GFR (08/23/2018 5:40 AM [employer] DISTRICT CUSTOMS DIRECTOR) Only the most recent of 4 results within the time period is included. Estimated GFR >=90 mL/min/1.[address] [facility] Comment: [facility] CatergoryUnitsInte rpretation G1 >=90 Normal or high G2 60-89Mildly decreased S4b40-75 Mildly to moderately decreased Q7h83-64 Moderately to severely decreased G4 15-29Severely decreased G5 <15Kidney failure The eGFR was calculated using the Chronic Kidney Disease Epidemiology Collaboration (CKD-EPI) equation. Interpretation is based on recommendations of the National Kidney Foundation-Kidney Disease Outcomes Quality Initiative (NKF-KDOQI) published in 2014. Specimen Plasma specimen Performing Organization Address City/State/Zipcode Phone Number [place] [address] [place] [address] PATHOLOGY AND GENOMIC MEDICINE [facility] [id number] [place] [address] * CBC with platelet and differential (08/23/2018 5:40 AM [employer] DIRECTOR) Only the most recent of 4 results within the time period is included. WBC 8.2 4.5 - 11.0 k/uL [facility] RBC 3.44 (L) 4.20 - 5.50 m/uL [facility] HGB 10.6 (L) 12.0 - 16.0 g/dL [facility] HCT 32.3 (L) 37.0 - 47.0 % [facility] MCV 93.9 82.0 - 100.0 fL [facility] MCH 30.8 27.0 - 34.0 pg [facility] MCHC 32.8 31.0 - 37.0 g/dL [facility] RDW - SD 47.3 37.0 - 55.0 fL [facility] MPV 11.0 6.9 - 11.0 fL [facility] Platelet count 179 150 - 400 K/uL [facility] Nucleated RBC 0.00 /100 WBC [facility] Neutrophils 67.2 39.0 - 69.0 % [facility] Lymphocytes 22.9 (L) 25.0 - 45.0 % [facility] Monocytes 8.1 0.0 - 10.0 % [facility] Eosinophils 0.2 0.0 - 5.0 % [facility] Basophils 0.9 0.0 - 1.0 % [facility] Immature granulocytes 0.7 0.0 - 1.0 % [facility] Specimen Blood Performing Organization Address City/[facility] Phone Number [facility] [place] [address] PATHOLOGY AND GENOMIC MEDICINE [address] * Phosphorus level (08/23/2018 5:40 AM [employer] DIRECTOR) Only the most recent of 3 results within the time period is included. Phosphorus 2.7 2.4 - 4.5 mg/dL [facility] Specimen Plasma specimen Performing Organization Address City/[facility] [place] [address] PATHOLOGY AND GENOMIC MEDICINE [address] * Magnesium level (08/23/2018 5:40 AM [employer]S DIRECTOR) Only the most recent of 3 results within the time period is included. Magnesium 2.2 1.6 - 2.4 mg/dL [facility] Specimen Plasma specimen Performing Organization Address City/[facility] Phone Number [facility] [place] [address] PATHOLOGY AND GENOMIC MEDICINE [address] * Ionized calcium (08/23/2018 5:40 AM [employer] DIRECTOR) Only the most recent of 3 results within the time period is included. pH 7.44 [facility] Ionized calcium 1.06 (L) 1.11 - 1.32 mmol/L [facility] Specimen Plasma specimen Performing Organization Address City/[facility] Phone Number [facility] [place] [address] PATHOLOGY AND GENOMIC MEDICINE [address] * Vancomycin level, trough (08/23/2018 5:40 AM [employer] DIRECTOR) Only the most recent of 2 results within the time period is included. Vancomycin, trough 11.3 10.0 - 20.0 ug/mL [facility] Comment: [facility] Therapeutic Ranges: Peak30.0 - 40.0 ug/mL Koiayj15.0 - 20.0 ug/mL Specimen Blood Performing Organization Address [facility] [place] [address] PATHOLOGY AND [facility] MEDICINE [address] * Basic metabolic panel (08/23/2018 5:40 AM [employer] DIRECTOR) Only the most recent of 3 results within the time period is included. Sodium 141 135 - 148 mEq/L [facility] Potassium 3.3 (L) 3.5 - 5.0 mEq/L [facility] Chloride 105 98 - 112 mEq/L [facility] CO2 27 24 - 31 mEq/L [facility] Anion gap 9@ANIO 7 - 15 mEq/L [facility] BUN 10 8 - 23 mg/dL [facility] Creatinine 0.68 0.50 - 0.90 mg/dL [facility] Glucose 99 65 - 99 mg/dL [facility] Calcium 8.5 (L) 8.8 - 10.2 mg/dL [facility] Specimen Plasma specimen Performing Organization Address [facility] Phone Number [facility] [place] [phone] PATHOLOGY AND GENOMIC MEDICINE [facility] [address] * POC glucose (08/22/2018 12:40 PM [employer] DIRECTOR) Only the most recent of 10 results within the time period is included. POC glucose 112 (H) 65 - 99 mg/dL [facility] Comment: [facility] RN Notified Meter ID: [id number] Orthotist: Neo Marrufo Performing Organization Address City/State/Zipcode Phone Number [place] [address] [place] [address] PATHOLOGY AND GENOMIC MEDICINE [facility] [address] * Continuous EEG monitoring (08/22/2018 11:17 AM [employer] DIRECTOR) Narrative Performed At [facility] OF Date of Study Completion:August 22, 2018 PATHOLOGY AND Date of Interpretation: August 23, 2018 GENOMIC MEDICINE OrderingProvider:Dr. Iam Aden Overnight VideoElectroencephalogram Report History: 62 year old woman being treated after 2 seizure spells. Please better characterize the underlying epileptic disorder. Technical Description: The recording was started at 3:05 PM on 08/21/2018 and ended at 11:22 AM on 08/22/2018. It was a digitally recorded multi-montage EEG with 21 electrodes placed according to the International 10/20 system. An EKG strip was recorded continuously. True eye leads were not employed. True temporal leads were not employed. EEG Description: When maximally aroused, cerebral activity consisted of a posterior rhythm maximally measured at 9 to 10 Hz, 20 to 40 mV in amplitude. There was asymmetry to the tracing with increased delta activity seen over the left frontocentral region. There was additionally interictal epileptiform discharged demonstrating phase reversal over the T3 electrode. An electrographic seizure was not identified. Sleep Recording: Stage II sleep was characterized by sleep spindles and vertex transients. Activation Procedures: Neither hyperventilation nor photic stimulation were attempted. EEG Interpretation: This was anabnormal overnight video EEG. 1. Interictal epileptiform discharges, left frontocentral. 2. Regional slowing, left frontocentral. 3. No electrographic seizures. Clinical Correlation: 1. There was continued evidence of an underlying region of cortical irritability to the left frontocentral region that may be the focus for future clinical seizures. Treatment with an antiepileptic agent is recommended. 2. There was no evidence of electrographic seizures or status epilepticus seen over the course of this extended tracing. Performing Organization Address City/[facility] Phone [place] [address] [place] [address] PATHOLOGY AND [facility] * Continuous EEG monitoring (08/22/2018 11:16 AM [employer] DIRECTOR) Narrative Performed At [facility] OF Date of Study Completion: August 21, 2018 PATHOLOGY AND Date of Interpretation: August 22, 2018 GENOMIC MEDICINE Ordering Provider: Dr. Iam Aden Overnight Video Electroencephalogram Report History: 62 year old woman being treated after 2 seizure spells. Please better characterize the underlying epileptic disorder. Technical Description: The recording was started at 1:58 AM and ended at 11:14 AM on 08/21/2018. It was a digitally recorded multi-montage EEG with 21 electrodes placed according to the International 10/20 system. An EKG strip was recorded continuously. True eye leads were not employed.True temporal leads were not employed. EEG Description: Cerebral activity consisted of continuous polymorphic delta and theta discharges. As the tracing progressed a posterior rhythm was maximally measured at 6 to 7 Hz, 20 to 40 mV in amplitude. There was continued asymmetry with increased delta activity seen over the left frontocentral region. There was continued interictal epileptiform discharged demonstrating phase reversal over the T3 electrode. An electrographic seizure was not identified. Sleep Recording: Stage II sleep was characterized by sleep spindles and vertex transients. Activation Procedures: Neither hyperventilation nor photic stimulation were attempted. EEG Interpretation:This was an abnormal overnight video EEG. 1. Interictal epileptiform discharges, left frontocentral. 2. Regional slowing, left frontocentral. 3. No electrographic seizures. Clinical Correlation: 1. There was continued evidence of an underlying region of cortical irritability to the left frontocentral region that may be the focus for future clinical seizures. Treatment with an antiepileptic agent is recommended. 2. There was no evidence of electrographic seizures or status epilepticus seen over the course of this extended tracing. Performing Organization Address [facility] Phone [place] [address] [place] [address] PATHOLOGY AND [facility] * Phenytoin level (08/22/2018 4:40 AM [employer] DIRECTOR) Only the most recent of 2 results within the time period is included. Phenytoin 15.4 10.0 - 20.0 ug/mL [facility] Comment: [facility] Therapeutic Range: 10 - 20 ug/mL Specimen Plasma specimen Performing Organization Address City/State/[place] [address] PATHOLOGY AND GENOMIC MEDICINE [address] * XR Chest 1 Vw Portable (08/22/2018 2:48 AM [employer] DIRECTOR) Only the most recent of 4 results within the time period is included. Narrative Performed At EXAMINATION:XR CHEST 1 VW PORTABLE [facility] CLINICAL HISTORY:Shortness of breath, Ventilator Patient COMPARISON:Most Recent IMPRESSION: Heart and mediastinum are stable. Increased pulmonary vascular congestion and left basilar patchy opacities. [facility]-[id number] Procedure Note Hm Interface, Radiology Results Incoming - 08/22/2018 6:11 AM [employer]S DIRECTOR EXAMINATION: XR CHEST 1 VW PORTABLE CLINICAL HISTORY: Shortness of breath, Ventilator Patient COMPARISON: Most Recent IMPRESSION: Heart and mediastinum are stable. Increased pulmonary vascular congestion and left basilar patchy opacities. [facility]-[id number] Performing Organization Address [facility]/Zipcode Phone Number [facility] [address] [place] [address] * Arterial blood gas (08/21/2018 4:22 PM [employer] DIRECTOR) Only the most recent of 6 results within the time period is included. pH, arterial 7.36 7.35 - 7.45 [facility] pCO2, arterial 50 (H) 35 - 45 mmHg [facility] pO2, arterial 147 (H) 80 - 90 mmHg [facility] Bicarbonate, arterial 27.6 21.0 - 28.0 mmol/L [facility] Base excess, arterial 2 -2 - 2 mEq/L [facility] O2 saturation, arterial 99 95 - 100 % [facility] Specimen Blood Performing Organization Address City/[facility]/Zipcode Phone Number [facility] [place] [address] PATHOLOGY AND GENOMIC MEDICINE [address] * MRI Brain W Wo Contrast (08/21/2018 2:19 PM [employer]USTOMS DIRECTOR) Narrative [facility] At [facility] EXAMINATION: MRI BRAIN W WO CONTRAST CLINICAL HISTORY: Seizureams COMPARISON:CT brain from yesterday. TECHNIQUE: Multiplanar and multisequence MRI imaging of the brain was obtained with and without contrast. FINDINGS: There is asymmetric restricted diffusion in the left hippocampus and paracentral anterior left occipital lobe. There is increased T2 signal intensity in this region. This area is slightly enlarged. Recommend clinical correlation for recent infarct. This can also sometimes occur if the patient had a recent seizure and this is the etiology of the patient's seizure. There is no evidence of recent hemorrhage or significant mass effect. The coronal FLAIR images show a small small area of nonspecific increased T2 signal intensity in the white matter in the anterior upper right temporal lobe which is not seen on the axial FLAIR images and is of questionable significance. There is no evidence of migration abnormality. There are no areas of abnormal enhancement in the brain or extra axial region. The sella is partially empty with a small pituitary gland. There is mild mucosal thickening in a few inferior right mastoid air cells. The nasal septum deviates towards the right. IMPRESSION: Increased diffusion signal and T2 signal intensity with slight enlargement of the left hippocampus and adjacent anterior occipital lobe. Recommend clinical correlation for recent infarct. This can also be seen in patients with a recent seizure. [facility]-[id number] Procedure Note Interface, Radiology Results Incoming - 08/21/2018 2:30 PM DEPUTY DISTRICT CUSTOMS DIRECTOR EXAMINATION: MRI BRAIN W WO CONTRAST CLINICAL HISTORY: Seizure ams COMPARISON: CT brain from yesterday. TECHNIQUE: Multiplanar and multisequence MRI imaging of the brain was obtained with and without contrast. FINDINGS: There is asymmetric restricted diffusion in the left hippocampus and paracentral anterior left occipital lobe. There is increased T2 signal intensity in this region. This area is slightly enlarged. Recommend clinical correlation for recent infarct. This can also sometimes occur if the patient had a recent seizure and this is the etiology of the patient's seizure. There is no evidence of recent hemorrhage or significant mass effect. The coronal FLAIR images show a small small area of nonspecific increased T2 signal intensity in the white matter in the anterior upper right temporal lobe which is not seen on the axial FLAIR images and is of questionable significance. There is no evidence of migration abnormality. There are no areas of abnormal enhancement in the brain or extra axial region. The sella is partially empty with a small pituitary gland. There is mild mucosal thickening in a few inferior right mastoid air cells. The nasal septum deviates towards the right. IMPRESSION: Increased diffusion signal and T2 signal intensity with slight enlargement of the left hippocampus and adjacent anterior occipital lobe. Recommend clinical correlation for recent infarct. This can also be seen in patients with a recent seizure. [id number] Performing Organization Address City/[facility]/Zipcode Phone Number [facility] [address] [place] [address] * Lactic acid level (08/21/2018 5:30 AM DEPUTY DISTRICT CUSTOMS DIRECTOR) Lactic acid 2.3 (H) 0.5 - 2.2 mmol/L [facility] Specimen Plasma specimen Performing Organization Address City/[facility] Phone Number [facility] [place] [address] PATHOLOGY AND GENOMIC MEDICINE [address] * Lactic acid level, SEPSIS - Now and repeat 2x every 3 hours (08/21/2018 1:21 AM DEPUTY DISTRICT CUSTOMS DIRECTOR) Only the most recent of 3 results within the time period is included. Lactic acid 2.5 (H) 0.5 - 2.2 mmol/L [facility] Specimen Plasma specimen Performing Organization Address [facility] Phone Number [facility] [place] [address] PATHOLOGY AND GENOMIC MEDICINE [address] * Intubation (08/20/2018 9:39 PM DEPUTY DISTRICT CUSTOMS DIRECTOR) Narrative Performed At Rod Mancilla MD 08/20/20189:41 PM Intubation Date/Time: 08/20/2018 9:39 PM Performed by: Rod Mancilla MD Authorized by: Rod Mancilla MD Consent: Consent obtained:Verbal Consent given by:Spouse Risks discussed:Aspiration, bleeding, hypoxia, dental trauma, laryngeal injury and pneumothorax Alternatives discussed:No treatment [place] protocol: Procedure explained and questions answered to patient or proxy's satisfaction: yes Relevant documents present and verified: yes Test results available and properly labeled: no Imaging studies available: yes Required blood products, implants, devices, and special equipment available: yes Site/side marked: yes Immediately prior to procedure, a time out was called: yes Patient identity confirmed:Arm band, anonymous protocol, patient vented/unresponsive and hospital-assigned identification number Pre-procedure details: Patient status:Unresponsive Mallampati score:3 Pretreatment medications:None Paralytics:Rocuronium Procedure details: Preoxygenation:Nonrebreather mask CPR in progress: no Intubation method:Oral Technique:Direct laryngoscopy Laryngoscope blade:Mac 3 Tube size (mm):7.5 Tube type:Cuffed Number of attempts:1 Ventilation between attempts: no Cricoid pressure: yes Tube visualized through cords: yes Placement assessment: ETT to teeth:23 Tube secured with:ETT sam Breath sounds:Equal Placement verification: chest rise, condensation, CXR verification, direct visualization, equal breath sounds, ETCO2 detector and tube exhalation CXR findings:ETT in proper place Post-procedure details: Patient tolerance of procedure:Tolerated well, no immediate complications * Methotrexate level (08/20/2018 9:10 PM DEPUTY DISTRICT CUSTOMS DIRECTOR) Methotrexate <0.04 umol/L [facility] Comment: HOSPITAL _MXT results called to and read back by MARISSA MAYER (name/location) at100:03 (date/time) by _LSB. Specimen Blood Performing Organization Address City/State/Zipcode Phone Number [facility] DEPARTMENT OF [address] [place] [address] PATHOLOGY AND GENOMIC MEDICINE [facility] [address] [place] [address] HOSPITAL * EEG (routine) (08/20/2018 6:16 PM DEPUTY DISTRICT CUSTOMS DIRECTOR) Narrative Performed At [facility] DEPARTMENT OF Date of Study Completion: August 20, 2018 PATHOLOGY AND Date of Interpretation: August 20, 2018 GENOMIC MEDICINE Ordering Provider: Dr. Iam Aden Inpatient Electroencephalogram Report History: 62 year old woman being treated after a seizure. Please evaluate the underlying cerebral activity and rule out interictal epileptiform discharges. Technical Description: The recording was started at 17:44 and ended at 18:10 on 08/20/2018. It was a digitally recorded multi-montage EEG with 21 electrodes placed according to the International 10/20 system. An EKG strip was recorded continuously. True eye leads were not employed.True temporal leads were not employed. EEG Description: Cerebral activity consisted of continuous polymorphic delta and theta discharges. A posterior rhythm was not identified. There was asymmetry with increased delta activity seen over the left frontocentral region at times sharply contoured and demonstrating phase reversal over the T3 electrode. Sleep Recording: Stage II sleep was not recorded. Activation Procedures: Neither hyperventilation nor photic stimulation were attempted. EEG Interpretation:This was an abnormal stuporous EEG. 1. Interictal epileptiform discharges, left frontocentral. 2. Regional slowing, left frontocentral. Clinical Correlation: 1. There was evidence of an underlying region of cortical irritability to the left frontocentral region that may be the focus for future clinical seizures. Treatment with an antiepileptic agent is recommended. Performing Organization Address City/[facility] Phone Number [place] [address] [place] [address] PATHOLOGY AND GENOMIC MEDICINE * Syphilis treponemal IgG (08/20/2018 4:10 PM DEPUTY DISTRICT CUSTOMS DIRECTOR) Syphilis treponemal IgG Non-reactiveComment: Non-reactive [facility] Non-reactive: No serological HOSPITAL evidence of Syphilis infection Specimen Serum Performing Organization Address [facility] Phone Number [facility] DEPARTMENT OF [address] [place] [address] PATHOLOGY AND GENOMIC MEDICINE [address] * Varicella zoster by PCR (08/20/2018 3:40 PM DEPUTY DISTRICT CUSTOMS DIRECTOR) VZV result Not-Detected Not-Detected copies/mL [facility] Varicella zoster, PCR See link below for PDF Lab [facility] ReportComment: Case Number: HOSPITAL [id number] Performing Organization Address City/[facility] Phone Number [facility] DEPARTMENT OF [address] [place] [address] PATHOLOGY AND GENOMIC MEDICINE [address] * Rapid HIV 1 & 2 (08/20/2018 3:40 PM DEPUTY DISTRICT CUSTOMS DIRECTOR) Rapid HIV 1 and 2 Non-Reactive Non-Reactive [facility] Specimen Blood Performing Organization Address City/[facility] Phone Number [place] [address] [place] [address] PATHOLOGY AND GENOMIC MEDICINE [address] HOSPITAL * Herpes simplex virus by PCR (08/20/2018 3:40 PM DEPUTY DISTRICT CUSTOMS DIRECTOR) Herpes virus, PCR Not-Detected Not-Detected [facility] Herpes virus, PCR See link below for PDF Lab [facility] ReportComment: Case Number: HOSPITAL [id number] Performing Organization Address City/State/Zipcode Phone Number [facility] DEPARTMENT OF [address] [place] [address] PATHOLOGY AND GENOMIC MEDICINE [address] * Sedimentation rate (08/20/2018 3:40 PM DEPUTY DISTRICT CUSTOMS DIRECTOR) Sedimentation rate 11 0 - 20 mm/hr [facility] Specimen Blood Performing Organization Address [facility] Phone Number [facility] [place] [id number] [place] [address] PATHOLOGY AND GENOMIC MEDICINE [address] * Vitamin B12 level (08/20/2018 3:40 PM DEPUTY DISTRICT CUSTOMS DIRECTOR) Vitamin B12 556 211 - 946 pg/mL [facility] Comment: HOSPITAL Significant overlap exists between normal and deficiency states. However, most patients with deficiencies will have Serum B12 <200 pg/mL. Specimen Serum Performing Organization Address [facility] Phone Number [facility] DEPARTMENT OF [address] [place] [address] PATHOLOGY AND GENOMIC MEDICINE [address] * Ammonia level (08/20/2018 3:40 PM DEPUTY DISTRICT CUSTOMS DIRECTOR) Only the most recent of 2 results within the time period is included. Ammonia 58 (H) 11 - 51 umol/L [facility] Specimen Plasma specimen Performing Organization Address City/[facility]/Zipcode Phone Number [place] [address] [place] [address] PATHOLOGY AND GENOMIC MEDICINE [address] * Gram stain (08/20/2018 3:20 PM DEPUTY DISTRICT CUSTOMS DIRECTOR) Only the most recent of 2 results within the time period is included. Gram stain isolate No WBC's or organisms seen. [facility] Comment: HOSPITAL Specimen Information Specimen Source: CSF (Spinal Fluid) Specimen Site: Tube 2 Specimen Cerebrospinal fluid - Tube 2 Performing Organization Address City/State/Zipcode Phone Number [facility] DEPARTMENT OF [address] [place] [address] PATHOLOGY AND GENOMIC MEDICINE [address] * CSF culture (08/20/2018 3:20 PM DEPUTY DISTRICT CUSTOMS DIRECTOR) CSF culture isolate No growth after [address] [facility] Comment: HOSPITAL Specimen Information Specimen Source: CSF (Spinal Fluid) Specimen Site: Tube 2 Specimen Cerebrospinal fluid - Tube 2 Performing Organization Address City/State/Zipcode Phone Number [facility] DEPARTMENT OF [address] [place] [address] PATHOLOGY [place] [address] HOSPITAL * CSF cell count with differential (08/20/2018 3:20 PM DEPUTY DISTRICT CUSTOMS DIRECTOR) CSF tube number Tube 3 [facility] Color, CSF Colorless [facility] Appearance, CSF Clear [facility] RBC, CSF 1 0 - 1 /CMM [facility] WBC, CSF 1 0 - 5 /CMM [facility] CSF mononuclear cell 1/CMM [facility] Specimen Cerebrospinal fluid Performing Organization Address City/[facility] Phone Number [facility] [place] [id number] [place] [address] PATHOLOGY AND [facility] MEDICINE [address] * Protein, CSF (08/20/2018 3:20 PM DEPUTY DISTRICT CUSTOMS DIRECTOR) Protein, CSF 49 (H) 15 - 45 mg/dL [facility] Specimen Cerebrospinal fluid Performing Organization Address City/[facility]/Zipcode Phone Number [place] [address] [place] [address] PATHOLOGY AND GENOMIC MEDICINE [address] * Glucose level, CSF (08/20/2018 3:20 PM DEPUTY DISTRICT CUSTOMS DIRECTOR) Glucose, CSF 68 40 - 70 mg/dL [facility] Specimen Cerebrospinal fluid Performing Organization Address City/State/Zipcode Phone Number [place] [address] [place] [address] PATHOLOGY AND GENOMIC MEDICINE [facility] [address] [place] [address] * Thyroid stimulating hormone (08/20/2018 1:59 PM DEPUTY DISTRICT CUSTOMS DIRECTOR) TSH 1.79 0.27 - 4.20 uIU/mL [facility] Specimen Blood Performing Organization Address City/State/Zipcode Phone Number [facility] [place] [address] PATHOLOGY AND GENOMIC MEDICINE [address] * Alcohol level, blood (08/20/2018 1:59 PM DEPUTY DISTRICT CUSTOMS DIRECTOR) Alcohol None Detected mg/dL [facility] Comment: [facility] Normal None Detected Legal Intoxication in [place]80 mg/dL (0.08%) - Whole Blood Toxic Concentration 200 mg/dL (0.2%) Potentially Fatal3 50 - 500 mg/dL (0.35 - 0.5%) Alcohol percent None Detected % [facility] Specimen Blood Performing Organization Address City/[facility] Phone Number [facility] [place] [address] PATHOLOGY AND GENOMIC MEDICINE [address] * Acetaminophen level (08/20/2018 1:59 PM DEPUTY DISTRICT CUSTOMS DIRECTOR) Acetaminophen level <8.3 10.0 - 30.0 ug/mL [facility] Comment: [facility] Therapeutic 10-30 ug/mL Possible Toxicity 150-200 ug/mL Probable Toxicity >200 ug/mL Specimen Blood Performing Organization Address City/[facility] [place] [address] PATHOLOGY AND GENOMIC MEDICINE [address] * Salicylate level (08/20/2018 1:59 PM DEPUTY DISTRICT CUSTOMS DIRECTOR) Salicylate <0.4 (L) 3.0 - 30.0 mg/dL [facility] Specimen Blood Performing Organization Address City/[facility] [place] [address] PATHOLOGY AND GENOMIC MEDICINE [address] * ECG 12 lead (08/20/2018 1:56 PM DEPUTY DISTRICT CUSTOMS DIRECTOR) Ventricular rate 91 [facility] Atrial rate 91 [facility] RI interval 144 [facility] QRSD interval 88 [facility] QT interval 384 [facility] QTC interval 472 [facility] P axis 1 81 [facility] QRS axis 1 91 [facility] T wave axis 85 [facility] EKG impression Normal sinus rhythm-No [facility] previous ECGs available- Narrative Performed At Performing Organization Address City/State/Zipcode Phone Number [facility] MUSE [address] [place] [address] * Urinalysis screen and microscopy, with reflex to culture (08/20/2018 1:44 PM DEPUTY DISTRICT CUSTOMS DIRECTOR) Specimen site Clean catch [facility] Color, UA Yellow [facility] Appearance, UA Clear [facility] Specific gravity, UA >1.070 (H)Comment: Results 1.001 - 1.[address] [facility] confirmed by another [facility] methodology pH, UA 5.0 5.0 - 9.0 [facility] Protein, UA Negative Negative [facility] Glucose, UA Negative Negative [facility] Ketones, UA Negative Negative [facility] Bilirubin, UA Negative Negative [facility] Blood, UA Negative Negative [facility] Nitrite, UA Negative Negative [facility] Urobilinogen, UA <2.0 <2.0 E.U./dL [facility] Leukocyte esterase, UA Small (A) Negative [facility] Epithelial cells, UA 1 /HPF [facility] Round epithelial cells, <1 0 - 5 /HPF [facility] WBC, UA 28 (H) 0 - 4 /HPF [facility] RBC, UA 1 0 - 5 /HPF [facility] Bacteria, UA Few None seen [facility] WBC clumps, UA Few (A) [facility] Yeast, UA None seen [facility] Yeast with pseudohyphae, None seen [facility] Hyaline casts, UA 0-2 /LPF [facility] Specimen Urine Performing Organization Address City/[facility]/Zipcode Phone Number [place] [address] [place] [address] PATHOLOGY AND GENOMIC MEDICINE [address] * Urine drugs of abuse screen (08/20/2018 1:44 PM DEPUTY DISTRICT CUSTOMS DIRECTOR) Amphetamine screen, urine Negative [facility] Barbiturate screen, urine Negative [facility] Benzodiazepine screen, Negative [facility] urine [facility] Cannabinoid screen, urine Negative [facility] Cocaine screen, urine Negative [facility] Methadone metabolite Negative [facility] (EDDP), urine [facility] Opiates screen, urine Negative [facility] Phencyclidine screen, Negative [facility] urine [facility] Tricyclic screen, urine Negative [facility] Comment: [facility] Drug screen minimum concentration of detectability Amphetamines 1000 ng/mL Barbiturates 200 ng/mL Benzodiazepines 300 ng/mL Cocaine 300 ng/mL Methadone 300 ng/mL Opiates 300 ng/mL Phencyclidine 25 ng/mL Cannabinoids 50 ng/mL Tricyclics 1000 ng/mL Negative test results indicates presumptive evidence of lack of clinically significant drug concentration in this urine specimen. Positive test results are presumptive evidence of clinically significant drug concentration in this urine specimen. Testing performed for medical purposes only. Specimen Urine Performing Organization Address [facility] Phone Number [facility] OF [id number] [place] [address] PATHOLOGY AND GENOMIC MEDICINE [address] * Urine culture (08/20/2018 1:44 PM DEPUTY DISTRICT CUSTOMS DIRECTOR) Urine culture isolate Escherichia coli [facility] >10-5 cfu/ml HOSPITAL The performance characteristics of this assay on this isolate were validated by the Microbiology Laboratory at [facility].This source has not been approved by the U.S. Food and Drug Administration.The results are not intended to be used as the sole means for clinical diagnosis or patient management.The Microbiology Laboratory is authorized under the clinical Laboratory Improvement Amendments of 1988 (CLIA-88) to perform high complexity testing. (A) Comment: Specimen Information Specimen Source: Urine Specimen Site: Clean catch Specimen Urine Antibiotic Method Susceptibility Organism Ampicillin JASON <=2 mcg/mL: Susceptible Escherichia coli Amoxicillin/Clavulanate JASON 4/2 mcg/mL: Susceptible Escherichia coli Amikacin JASON <=4 mcg/mL: Susceptible Escherichia coli Aztreonam JASON <=1 mcg/mL: Susceptible Escherichia coli Ceftazidime JASON <=0.5 mcg/mL: Susceptible Escherichia coli Ciprofloxacin JASON <=0.5 mcg/mL: Susceptible Escherichia coli Ceftriaxone JASON <=0.5 mcg/mL: Susceptible Escherichia coli Cefuroxime Sodium JASON <=4 mcg/mL: Susceptible Escherichia coli Cefazolin JASON <=1 mcg/mL: Susceptible Escherichia coli Cefepime JASON <=0.5 mcg/mL: Susceptible Escherichia coli Nitrofurantoin JASON 32 mcg/mL: Susceptible Escherichia coli Cefoxitin JASON <=4 mcg/mL: Susceptible Escherichia coli Gentamicin JASON <=1 mcg/mL: Susceptible Escherichia coli Imipenem JASON <=0.25 mcg/mL: Susceptible Escherichia coli Levofloxacin JASON <=1 mcg/mL: Susceptible Escherichia coli Meropenem JASON <=0.125 mcg/mL: Susceptible Escherichia coli Tobramycin JASON 1 mcg/mL: Susceptible Escherichia coli Ampicillin/Sulbactam JASON 2/1 mcg/mL: Susceptible Escherichia coli Trimethoprim/Sulfamethoxazole JASON >2/38 mcg/mL: Resistant Escherichia coli Tetracycline JASON <=1 mcg/mL: Susceptible Escherichia coli Piperacillin/Tazobactam JASON <=2/4 mcg/mL: Susceptible Escherichia coli Ertapenem JASON <=0.125 mcg/mL: Susceptible Escherichia coli Tigecycline JASON <=0.5 mcg/mL: Susceptible Escherichia coli [facility] Organization Address City/State/Zipcode Phone Number [facility] [place] [address] PATHOLOGY AND GENOMIC MEDICINE [address] * CTA Head W Wo Contrast (08/20/2018 1:43 PM DEPUTY DISTRICT CUSTOMS DIRECTOR) Narrative Performed At EXAMINATION: CT ANGIOGRAM HEAD W WO CONTRAST RADIANT CLINICAL HISTORY: STROKE COMPARISON:None TECHNIQUE:Imaging of the intracranial circulation was obtained from the skull base to the vertex during the arterial phase of enhancement. Postprocessing was performed with MIP multiplanar and 3D reconstructed images.CT imaging was performed with iterative reconstruction technique and/or automated exposure control to reduce radiation dose. FINDINGS: The cervical, petrous, cavernous, clinoid and supraclinoid segments of internal carotid arteries are patent bilaterally. No aneurysms, dissection flaps or measurable stenosis identified. The major branches of the anterior and posterior circulations are patent without luminal irregularity. No basilar tip aneurysms. The V4 segments are symmetric and normal in appearance. No variant anatomy identified. Limited examination of the brain demonstrates no evidence of acute intracranial abnormality.Normal variant dominant left transverse and sigmoid sinus is noted, with markedly hypoplastic right transverse sinus. IMPRESSION: Patent alturas of Guan vasculature, without evidence of aneurysm or large vessel occlusion. [facility]-[id number] Procedure Note Interface, Radiology Results Incoming - 08/20/2018 1:58 PM DEPUTY DISTRICT CUSTOMS DIRECTOR EXAMINATION: CT ANGIOGRAM HEAD W WO CONTRAST CLINICAL HISTORY: STROKE COMPARISON: None TECHNIQUE: Imaging of the intracranial circulation was obtained from the skull base to the vertex during the arterial phase of enhancement. Postprocessing was performed with MIP multiplanar and 3D reconstructed images. CT imaging was performed with iterative reconstruction technique and/or automated exposure control to reduce radiation dose. FINDINGS: The cervical, petrous, cavernous, clinoid and supraclinoid segments of internal carotid arteries are patent bilaterally. No aneurysms, dissection flaps or measurable stenosis identified. The major branches of the anterior and posterior circulations are patent without luminal irregularity. No basilar tip aneurysms. The V4 segments are symmetric and normal in appearance. No variant anatomy identified. Limited examination of the brain demonstrates no evidence of acute intracranial abnormality. Normal variant dominant left transverse and sigmoid sinus is noted, with markedly hypoplastic right transverse sinus. IMPRESSION: Patent alturas of Guan vasculature, without evidence of aneurysm or large vessel occlusion. [facility]-[id number] Performing Organization Address City/State/Zipcode Phone Number [facility] [address] [place] [address] * CTA Neck W Wo Contrast (08/20/2018 1:42 PM DEPUTY DISTRICT CUSTOMS DIRECTOR) Narrative Performed At EXAMINATION:CT ANGIOGRAM NECK W WO CONTRAST [facility] CLINICAL HISTORY:STROKE COMPARISON:None. TECHNIQUE: Neck CTA with multi-planar MIP and volumetric rendering (3D) after bolus intravenous iodinated contrast administration was performed. All CT images were acquired using low-dose technique with automated exposure control. FINDINGS: Normal three-vessel branching of the aortic arch is noted. No atherosclerosis or narrowing of the aortic arch or branch vessels. There is normal contrast opacification along bilateral common, internal, and external carotid arteries. There is no significant stenosis according to the NASCET criteria (0%). There is normal contrast opacification along the vertebral arteries bilaterally. No dissection flaps or significant stenosis.The leftvertebral artery is dominant. The pharyngeal and rectal structures are symmetric and normal in appearance. No cervical adenopathy identified. There is mild to moderate heterogeneous enlargement of the right thyroid lobe, suggestive of mild goiter. Lung apices are clear. IMPRESSION: No significant cervical carotid or vertebral artery stenosis. [facility]-[id number] Procedure Note Interface, Radiology Results Incoming - 08/20/2018 1:55 PM DEPUTY DISTRICT CUSTOMS DIRECTOR EXAMINATION: CT ANGIOGRAM NECK W WO CONTRAST CLINICAL HISTORY: STROKE COMPARISON: None. TECHNIQUE: Neck CTA with multi-planar MIP and volumetric rendering (3D) after bolus intravenous iodinated contrast administration was performed. All CT images were acquired using low-dose technique with automated exposure control. FINDINGS: Normal three-vessel branching of the aortic arch is noted. No atherosclerosis or narrowing of the aortic arch or branch vessels. There is normal contrast opacification along bilateral common, internal, and external carotid arteries. There is no significant stenosis according to the NASCET criteria (0%). There is normal contrast opacification along the vertebral arteries bilaterally. No dissection flaps or significant stenosis.The left vertebral artery is dominant. The pharyngeal and rectal structures are symmetric and normal in appearance. No cervical adenopathy identified. There is mild to moderate heterogeneous enlargement of the right thyroid lobe, suggestive of mild goiter. Lung apices are clear. IMPRESSION: No significant cervical carotid or vertebral artery stenosis. [facility]-[id number] Performing Organization Address City/State/Zipcode Phone Number [facility] [address] [place] [address] * CT Stroke Brain Wo Contrast (08/20/2018 1:22 PM DEPUTY DISTRICT CUSTOMS DIRECTOR) Narrative Performed At EXAMINATION:CT STROKE BRAIN WO CONTRAST [facility] CT IMAGING WAS PERFORMED WITH ITERATIVE RECONSTRUCTION TECHNIQUE AND/OR AUTOMATED EXPOSURE CONTROL TO REDUCE RADIATION DOSE. CLINICAL HISTORY:STROKE, AMS COMPARISON:None. FINDINGS: There is no acute intracranial abnormality. Specifically there is no intracranial hemorrhage, mass effect or acute infarction. There is a 12 mm faint nodular hyperdensity lateral to the tentorial incisure on the left in the inferior parasagittal left parietal region. The etiology for this finding is not clear and could be artifactual. However I cannot exclude a nodular lesion either within the brain or extra-axial. Correlation with MRI the brain is recommended. The appearance the brain is otherwise unremarkable. Specifically there are no white matter changes and there is no significant volume loss. There is minimal atherosclerotic calcification in the distal internal carotid arteries. There is minimal mucosal thickening in the ethmoid and maxillary sinuses. IMPRESSION: No definite acute abnormality. There is a faint nodular hyperdensity lateral to the tentorial incisure along the inferior parasagittal left parietal lobe of unknown etiology. Correlation with MRI the brain is recommended. VANESSA LARA was informed of these findings on 08/20/2018 1:30 PM and acknowledged understanding of the findings. [id number] Procedure Note Hm Interface, Radiology Results Incoming - 08/20/2018 1:35 PM DEPUTY DISTRICT CUSTOMS DIRECTOR EXAMINATION: CT STROKE BRAIN WO CONTRAST CT IMAGING WAS PERFORMED WITH ITERATIVE RECONSTRUCTION TECHNIQUE AND/OR AUTOMATED EXPOSURE CONTROL TO REDUCE RADIATION DOSE. CLINICAL HISTORY: STROKE, AMS COMPARISON: None. FINDINGS: There is no acute intracranial abnormality. Specifically there is no intracranial hemorrhage, mass effect or acute infarction. There is a 12 mm faint nodular hyperdensity lateral to the tentorial incisure on the left in the inferior parasagittal left parietal region. The etiology for this finding is not clear and could be artifactual. However I cannot exclude a nodular lesion either within the brain or extra-axial. Correlation with MRI the brain is recommended. The appearance the brain is otherwise unremarkable. Specifically there are no white matter changes and there is no significant volume loss. There is minimal atherosclerotic calcification in the distal internal carotid arteries. There is minimal mucosal thickening in the ethmoid and maxillary sinuses. IMPRESSION: No definite acute abnormality. There is a faint nodular hyperdensity lateral to the tentorial incisure along the inferior parasagittal left parietal lobe of unknown etiology. Correlation with MRI the brain is recommended. VANESSA LARA was informed of these findings on 08/20/2018 1:30 PM and acknowledged understanding of the findings. [id number] Performing Organization Address City/State/Zipcode Phone Number [facility] [address] [place] [address] * Troponin (08/20/2018 1:08 PM DEPUTY DISTRICT CUSTOMS DIRECTOR) Troponin <0.30 0.00 - 0.30 ng/mL [facility] Comment: [facility] 0.11 - 1.49 ng/mlMay indicate increased risk of acute coronary syndrome. >=1.5 ng/ml Consistent with acute myocardial infarction. The diagnostic value of a single normal or non-diagnostic result is questionable.Serial samples at 2-6 hour intervals are required to rule out acute myocardial injury. Specimen Plasma specimen Performing Organization Address City/[facility]/Zipcode Phone Number [facility] DEPARTMENT OF [address] [place] [address] PATHOLOGY AND GENOMIC MEDICINE [address] * Partial thromboplastin time, activated (08/20/2018 1:08 PM DEPUTY DISTRICT CUSTOMS DIRECTOR) PTT 24.3 23.0 - 36.[address] [facility] Comment: [facility] PTT therapeutic range for unfractionated heparin is 61.0-112.0 seconds which corresponds to Anti-Xa 0.3-0.7 U/ml. Specimen Blood Performing Organization Address [facility] Phone Number [facility] [place] [address] PATHOLOG[address] * Prothrombin time with INR (08/20/2018 1:08 PM DEPUTY DISTRICT CUSTOMS DIRECTOR) Prothrombin time 13.3 11.5 - 14.5 sec [facility] INR 1.[address] [facility] Comment: [facility] The International Normalized Ratio (INR) is a therapeutic monitoring tool for patients who are stable on oral anticoagulant therapy. An INR of 2.0-3.0 is suggested for deep vein thrombosis/pulmonary embolism. Specimen Blood Performing Organization Address [facility] Phone Number [facility] [place] [address] PATHOLOGY AND GENOMIC MEDICINE [address] * Creatine kinase, total (CPK) (08/20/2018 1:08 PM DEPUTY DISTRICT CUSTOMS DIRECTOR) Creatine kinase 95 26 - 192 U/L [facility] Specimen Plasma specimen Performing Organization Address [facility]/Zipcode Phone Number [facility] [place] [address] PATHOLOGY AND GENOMIC MEDICINE [address] * Comprehensive metabolic panel (08/20/2018 1:08 PM DEPUTY DISTRICT CUSTOMS DIRECTOR) Sodium 142 135 - 148 mEq/L [facility] Potassium 3.9 3.5 - 5.0 mEq/L [facility] Chloride 106 98 - 112 mEq/L [facility] CO2 23 (L) 24 - 31 mEq/L [facility] Anion gap 13@ANIO 7 - 15 mEq/L [facility] BUN 11 8 - 23 mg/dL [facility] Creatinine 0.69 0.50 - 0.90 mg/dL [facility] Glucose 151 (H) 65 - 99 mg/dL [facility] Calcium 9.4 8.8 - 10.2 mg/dL [facility] Protein 7.3 6.3 - 8.3 g/dL [facility] Albumin 4.2 3.5 - 5.0 g/dL [facility] A/G ratio 1.4 0.7 - 3.8 [facility] Alkaline phosphatase 56 35 - 104 U/L [facility] AST 22 10 - 35 U/L [facility] ALT 25 5 - 50 U/L [facility] Total bilirubin <0.2 0.2 - 1.2 mg/dL [facility] Specimen Plasma specimen Performing Organization Address City/State/Zipcode Phone Number [place] [address] [place] [address] PATHOLOGY AND GENOMIC MEDICINE [address] * ECG ED Preliminary Interpretation - Not an Order (08/20/2018 1:04 PM DEPUTY DISTRICT CUSTOMS DIRECTOR) Narrative Performed At Vanessa Lara DO 08/20/20189:08 PM ECG ED Preliminary Interpretation - Not an Order Performed by: Vanessa Lara DO Authorized by: Vanessa Lara DO ECG reviewed by ED Physician in the absence of a dietitian assistant: yes Previous ECG: Previous ECG:Unavailable Interpretation: Interpretation: non-specific Rate: ECG rate:91 ECG rate assessment: normal Rhythm: Rhythm: sinus rhythm Ectopy: Ectopy: none QRS: QRS axis:Normal QRS intervals:Normal Conduction: Conduction: normal ST segments: ST segments:Normal T waves: T waves: normal Comments: Normal sinus rhythm.No evidence of acute MT. * CRITICAL CARE (08/20/2018 1:04 PM DEPUTY DISTRICT CUSTOMS DIRECTOR) Narrative Performed At Vanessa Lara DO 08/20/20189:08 PM Critical Care Performed by: Vanessa Lara DO Authorized by: Vanessa Lara DO Critical care provider statement: Critical care time (minutes):75 Critical care time was exclusive of:Separately billable procedures and treating other patients Critical care was necessary to treat or prevent imminent or life-threatening deterioration of the following conditions:Circulatory failure, FINAL RAIL CUTTER failure or compromise, sepsis, metabolic crisis and toxidrome Critical care was time spent personally by me on the following activities:Development of treatment plan with patient or surrogate, discussions with consultants, discussions with primary provider, evaluation of patient's response to treatment, examination of patient, obtaining history from patient or surrogate, ordering and performing treatments and interventions, ordering and review of laboratory studies, ordering and review of radiographic studies, pulse oximetry and re-evaluation of patient's condition [place] 'yes' if you are taking over critical care for this patient from another provider.: no * Lumbar Puncture (08/20/2018 1:04 PM DEPUTY DISTRICT CUSTOMS DIRECTOR) Narrative Performed At Vanessa Lara DO 08/20/20189:08 PM Lumbar Puncture Performed by: Vanessa Lara DO Authorized by: Vanessa Lara DO Consent: Consent obtained:Written Consent given by:Spouse Risks discussed:Bleeding, headache, infection, nerve damage, pain, repeat procedure and CSF leak Alternatives discussed:No treatment, delayed treatment, alternative treatment, observation and referral [place] protocol: Procedure explained and questions answered to patient or proxy's satisfaction: yes Relevant documents present and verified: yes Test results available and properly labeled: yes Imaging studies available: yes Immediately prior to procedure a time out was called: yes Site/side marked: yes Patient identity confirmed:Arm band and provided demographic data Pre-procedure details: Procedure purpose:Diagnostic Preparation: Patient was prepped and draped in usual sterile fashion Sedation: Sedation type:Anxiolysis Anxiolytics used::Ativan Anesthesia (see MAR for exact dosages): Anesthesia method:Local infiltration Local anesthetic:Lidocaine 1% w/o epi Procedure details: Lumbar space:L4-5 Patient position:L lateral decubitus Needle gauge:22 Needle type:Spinal needle - Quincke tip Needle length (in):3.5 Ultrasound guidance: no Number of attempts:1 Total volume (ml):10 Fluid appearance:Clear Tubes of fluid:4 Fluid sample: Sample sent to lab for analysis Catheter placed: No Post-procedure: Puncture site:Adhesive bandage applied and direct pressure applied Patient tolerance of procedure:Tolerated well, no immediate complications after 08/24/2017 Insurance Payer Benefit Subscriber ID Type Phone Address Plan / Group [facility] xxxxxxxxx HMO/PPO THCARE CHOICE/CHO ICE + Advance Directives Patient has advance care planning documents on file. For more information, tam moralez contact: Jaiden James [address] [facility] [place] [address]
[2018-08-25 13:20] LABS: EPITHELIAL CELLS,URINE RARE /LPF
[2018-08-25 13:59] VITALS: BP 173/77
[2018-08-25 14:13] VITALS: BP 173/77
--- NOTE | 2018-08-25 14:27 | Diagnostic Imaging Report ---
History: Seizure, intracranial lesion seen on CT. Comparison studies: Head CT 08/25/2018 and 05/26/2015. Technique: Precontrast sagittal and axial T2, axial DWI, axial T2*GRE, precontrast axial T1 FLAIR and postcontrast axial and coronal T1 FS through the whole brain and dedicated coronal T2 and coronal T2 FLAIR sequences through the hippocampi and temporal lobes. Intravenous contrast: 15 cc of Gadavist. Findings: Scalp: No abnormal signal. No masses. Bone marrow: Normal in signal intensity. Brain sulci: Appropriate for age. Ventricles: Normal in size. No hydrocephalus. Extra axial spaces: No mass, no fluid collection. Parenchyma: Enhancing 1.5 x 1.6 x 1.0 cm (SI x AP x TV), T2 FLAIR hyperintense lesion near the left anterior parietal occipital sulcus centered in the anterior precuneus gyrus of the left parietal lobe. Lesion demonstrates mild restricted diffusion and is also hyperdense to harris matter on the preceding head CT. The adjacent hippocampus, amygdala and hippocampal gyrus are mildly swollen and with increased T2/FLAIR hyperintensity. No other enhancing lesions or other signal abnormalities. No hemorrhage or acute ischemia. The right hippocampus appears grossly normal in size and signal intensity. Suprasellar region: No abnormalities. Craniocervical junction: Patent foramen magnum. No Chiari one malformation. Vessels: Normal flow-voids in the arteries and sinuses. Incidental finds: Mild nonspecific inflammatory mucosal thickening in the right maxillary sinus. IMPRESSION: 1. Nonspecific enhancing 1.6 cm lesion centered in the anterior left precuneus gyrus without significant mass effect. Diagnostic considerations include QUALITY CONTROL SYSTEMS MANAGER lymphoma, primary QUALITY CONTROL SYSTEMS MANAGER neoplasm with some imaging features which would suggest high-grade (i.e. GBM), or nonspecific encephalitis (infectious or inflammatory). Metastasis is an additional consideration but would be less likely in the absence of a known primary malignancy. 2. Signal changes in the adjacent left hippocampus which extend throughout the left ipsilateral medial temporal lobe may reflect secondary changes related to seizure activity, encephalitis or less likely infiltrating tumor. Patient has reportedly had recent workup at outside facility. Recommend clinical correlation and lumbar puncture with CSF sampling to initially further evaluate if not recently performed. Findings discussed with Dr. Peres at 2:03 PM on 08/25/2018. Signed by: Dr. Donn Noble M.D. on 08/25/2018 2:24 PM
[2018-08-25 16:00] VITALS: BP 141/73
[2018-08-25] MEDS ORDERED: HYDROXYZINE HCL 25 MG TAB PO PRN (18:15)
[2018-08-25 20:18] VITALS: BP 136/73
[2018-08-25 22:14] VITALS: BP 136/73
[2018-08-25] MEDS: LEVETIRACETAM 500 MG TAB PO SCH (23:13)
[2018-08-25 23:43] VITALS: BP 145/79
--- NOTE | 2018-08-26 00:07 | Diagnostic Imaging Report ---
EXAM: CT Chest, Abdomen and Pelvis WITH contrast INDICATION: Abnormal brain MRI. Evaluate for neoplasm. COMPARISON: None. TECHNIQUE: Chest, abdomen and pelvis were scanned utilizing a multidetector helical scanner from the lung apex to the pubic symphysis after administration of IV contrast. Coronal and sagittal reformations were obtained. Routine protocol was performed. Scan was performed during portal venous phase. IV CONTRAST: 100 mL of Isovue-370 ORAL CONTRAST: Water COMPLICATIONS: None RADIATION DOSE: Total DLP: 681.4 mGy*cm Estimated effective dose: (DLP x 0.015 x size factor) mSv Dose modulation, iterative reconstruction, and/or weight based adjustment of the mA/kV was utilized to reduce the radiation dose to as low as reasonably achievable. FINDINGS: LINES and TUBES: None. LUNGS AND AIRWAYS: Bilateral lower lobe atelectasis secondary to adjacent effusions. No masses or suspicious pulmonary nodules. Airways are normal. PLEURA: Small bilateral pleural effusions with adjacent atelectasis. HEART AND MEDIASTINUM: Right thyroid lobe is enlarged relative to the left lobe, suboptimally evaluated with CT. No mediastinal, hilar or axillary lymphadenopathy. The heart is normal in size.. There is no pericardial effusion. HEPATOBILIARY: No focal hepatic lesions. No biliary ductal dilation. GALLBLADDER: No radio-opaque stones or sludge. No wall thickening. SPLEEN: No splenomegaly. PANCREAS: No focal masses or ductal dilatation. ADRENALS: No adrenal nodules KIDNEYS/URETERS: Kidneys enhance symmetrically. No hydronephrosis. No cystic or solid mass lesions. No stones. GI TRACT: No abnormal distention, wall thickening, or evidence of bowel obstruction. PELVIC ORGANS/BLADDER: Air within the bladder. Recommend correlation for instrumentation. Hysterectomy. LYMPH NODES: No lymphadenopathy. VESSELS: There is mild atherosclerotic disease in the aorta and major arterial branches. PERITONEUM / RETROPERITONEUM: No free air or fluid. BONES: There are degenerative changes in the lumbar spine. No acute or suspicious osseous lesions. SOFT TISSUES: Unremarkable. IMPRESSION: 1. No evidence of metastatic disease or apparent site of primary malignancy. No lymphadenopathy. 2. Relative right thyroid lobe enlargement which can be further evaluated with thyroid ultrasound. 3. Small bilateral pleural effusions. Signed by: DR. Ceferino Jaimes MD on 08/26/2018 12:04 AM
--- NOTE | 2018-08-26 00:22 | Consultation ---
DATE OF CONSULTATION: August 25, 2018 NEUROLOGY CONSULT NOTE HISTORY OF PRESENT ILLNESS: Ms. Clark is a 62-year-old bxgzn-wadt-zjjbgqks woman with past medical history significant for a recently diagnosed seizure disorder, admitted to [facility] on August 25, 2018 with a rash, pruritus, and confusion. Approximately 24 hours prior to admission, Ms. Clark developed an erythematous maculopapular rash over the entire back and between the breasts. In addition to this rash, the patient endorsed generalized pruritus, so severe it prevented the patient from sleeping the night prior to admission. Concerned the rash and pruritus were side effects from recently prescribed antiepileptic medications, the patient presented to the emergency center at [facility] for further evaluation. Upon arrival in the emergency center, the patient was afebrile with a blood pressure of 152/83 mmHg and a pulse of 71 beats per minute. According to the emergency center physician, the patient appeared mildly confused and slow to respond. While in the emergency center, a CT of the brain without contrast was performed. This study revealed a nonspecific hyperdense 1.4 cm lesion in the left anteromedial occipital lobe without significant surrounding edema or mass effect. A MRI of the brain with and without contrast for further evaluation was recommended. Ms. Clark was admitted to [facility] under observation status for further evaluation and treatment. Ms. Clark was hospitalized at [facility] from August 20 through August 23, 2018. On the day of admission, the patient was at work when she experienced the abrupt onset of confusion and disorientation. Thinking she was going to be sick, the patient proceeded to the restroom. When she did not return for several minutes, a senior hr manager found the patient in the restroom, seated, and unresponsive. Emergency medical services were notified and Ms. Clark was transported to the emergency center at [facility] for further evaluation. While in the emergency center, the patient experienced a seizure, which is described as follows: The patient experienced the abrupt onset of generalized tonic-clonic activity with gaze deviation up into the right. Ms. Clark endorses foaming saliva accompanying the seizure activity. He did not report tongue biting or bladder or bowel incontinence. The seizure activity lasted for approximately 30 to 45 seconds. The duration of the postictal phase is unknown because Ms. Clark was intubated for airway protection and placed on a continuous infusion of propofol. While in the emergency center and during her subsequent hospitalization, Ms. Clark underwent neuroimaging of the brain (CT of the brain without contrast and MRI of the brain), multiple chest x-rays, a lumbar puncture, and an electroencephalogram. According to the patient's , the lumbar puncture was negative for infection. The CT of the brain reportedly showed a lesion on the left side of the brain towards the back. The same lesion was seen on the MRI of the brain. An EEG revealed abnormal activity over the left side of the brain. Ms. Clark was seen by a neurologist at [facility]. 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 Ms. Clark was discharged from [facility] on August 23, 2018 with Dilantin and Keppra for seizure prophylaxis. Ms. 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 These seizures occur with the frequency of once every other year. Ms. Clark has previously seen a neurologist, but does not recall the name of this physician. She does not recall which diagnostic studies were performed or if any medication was prescribed for treatment of her absence seizures. REVIEW OF SYSTEMS: Seizures, rash, pruritus, fatigue. PAST MEDICAL HISTORY: An autoimmune skin disorder, recently diagnosed seizure disorder, lesion in the left cerebral hemisphere. PAST SURGICAL HISTORY: Total hysterectomy, L4-L5 laminectomy, repair of a torn right biceps. PAST HOSPITALIZATIONS: Surgeries/procedures as listed, seizures in July 2018. FAMILY MEDICAL HISTORY: The patient's paternal and maternal grandparents are . Their medical histories are unknown. The patient's father is from congestive heart failure, he had a history of COPD as well. The patient's mother is . She had a history of hypertension and multiple strokes. Ms. Clark has 2 sisters and one-half sister, all of whom are alive. Her sisters both have thyroid disease. Her half sister has "stomach issues." The patient has no biological children. SOCIAL HISTORY: Ms. Clark is . 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 The patient does report a prior history of tobacco use, but quit smoking cigarettes in 2008. The patient endorses daily alcohol use (a few beers). The patient does not report current or prior recreational drug use. HOME MEDICATIONS: Levetiracetam 1000 mg by mouth twice daily, phenytoin 300 mg by mouth at bedtime daily, folic acid 1 mg by mouth daily, levofloxacin 500 mg by mouth daily for 3 days, methotrexate. ALLERGIES: PENICILLIN. NO KNOWN FOOD ALLERGIES. NO KNOWN ALLERGIES TO LATEX. NO KNOWN ALLERGIES TO IODINE OR OTHER CONTRAST MATERIALS. PHYSICAL EXAMINATION: VITAL SIGNS: Height 67 inches, weight 170 pounds, BMI 26.6 kg/sq m. Blood pressure 141/73 mmHg, pulse 79 beats per minute, respiratory rate 14 breaths per minute, oxygen saturation 96% on room air. GENERAL: The patient is awake and alert, does not appear distressed. HEENT: Normocephalic, atraumatic. Pupils are equal, round, and reactive to light. Moist mucous membranes. NECK: Supple. No appreciable thyromegaly. No appreciable carotid bruits. CARDIOVASCULAR: S1, S2, regular rate and rhythm. No murmurs, rubs, or gallops. RESPIRATORY: Clear to auscultation bilaterally. No wheezes, rhonchi, or rales. EXTREMITIES: The skin is warm and dry. No clubbing, cyanosis, or edema. The posterior tibial and dorsalis pedis pulses are 2+ and symmetric. SKIN: An erythematous maculopapular rash is present over the entire back. NEUROLOGIC EXAMINATION: MEMORY/ATTENTION: The patient is awake and alert, oriented to person, place, time, and situation. CRANIAL NERVES: Cranial nerve I - not tested. Cranial nerves II, III, IV, and - Pupils are equal and round, react briskly to light (from 4 mm to 2 mm). Extraocular movements intact. No nystagmus. Cranial nerve V - Sensation to light touch and pinprick is intact in the bilateral V1 through V3 distributions. Strength of the temporalis and masseter muscles is within normal limits. Cranial nerve VII - The face is symmetric as are all facial movements. Strength is within normal limits. Cranial nerve VIII - Hearing is intact to finger rub bilaterally. Cranial nerve IX, X - The soft palate elevates equally and symmetrically. Cranial nerve XI - Normal strength of the bilateral sternocleidomastoid and trapezius muscles. Cranial nerve XII - The tongue protrudes midline and moves symmetrically from side to side. STRENGTH: Bulk is normal. Strength is 5/5 in the bilateral deltoids, biceps, triceps, wrist flexors and extensors, finger flexors and extensors, intrinsic hand muscles, hip flexors, knee flexors and extensors, ankle dorsiflexion and plantarflexion, and intrinsic foot muscles. Tone is normal. DTRs: Deep tendon reflexes are 2+ and symmetric at the triceps, biceps, brachioradialis, patellas, and Achilles. Plantar responses are flexor bilaterally. SENSATION: Sensation is intact to light touch and pinprick in both arms and both legs. CEREBELLAR: Klyyqs-mnox-kjcmow and heel-murray movements are intact without dysmetria or other impairment. GAIT: Deferred. SPEECH: Spontaneous speech is normal without appreciable dysarthria or aphasia. Repetition is intact. INVOLUNTARY MOVEMENTS: None. PRONATOR DRIFT: None. LABORATORY DATA: A comprehensive metabolic panel is significant for hypokalemia with a potassium of 3.2, a carbon dioxide of 21, an elevated anion gap of 17.2, and a glucose of 71. Lactic acid 5.8. Ammonia 73. Cardiac enzymes are negative x1. TSH 0.973. A CBC with differential and platelets reveals a white blood cell count of 8.72 with a normal differential. The hemoglobin and hematocrit are 13.1 and 38.6, respectively. The platelet count is 247,000. PT, PTT, and INR are within normal limits. A urinalysis reveals slightly cloudy urine with a pH of 8, 2+ ketones, and 1+ bilirubin. Urine and blood cultures have been collected and are pending. A salicylate level is less than 5.0. An acetaminophen level is less than 3. A total phenytoin level is 17.44. A urine drug screen is positive for barbiturates, amphetamines, and benzodiazepines. DIAGNOSTIC STUDIES: 1. Electrocardiogram, August 25, 2018: Normal sinus rhythm at 72 beats per minute. 2. Chest x-ray, August 25, 2018: Mild patchy left basilar opacity, likely atelectasis. However, aspiration can have a similar appearance in the appropriate clinical context. 3. CT of the brain without contrast, August 25, 2018: On my review, there is a nonspecific 1.4 cm left anteromedial occipital lobe lesion without significant surrounding vasogenic edema or mass effect. There is no evidence of recent or remote large territorial ischemia or hemorrhage. Cerebral volumes are appropriate for age. There are no findings suggestive of chronic small-vessel ischemic disease. 4. MRI of the brain with and without contrast, August 25, 2018: On my review, there is an enhancing 1.6 cm lesion in the anterior left precuneus gyrus without significant surrounding vasogenic edema or mass effect. As discussed with the neuroradiologist, diagnostic considerations include primary ACCOUNTS ADMINISTRATOR lymphoma, a primary ACCOUNTS ADMINISTRATOR neoplasm (glioblastoma multiforme) or nonspecific encephalitis (infectious or inflammatory). Metastasis is an additional consideration. There are signal changes in the adjacent left hippocampus extending throughout the left ipsilateral medial temporal lobe. These changes may reflect recent seizure activity, encephalitis, or infiltrating tumor. There is no evidence of recent or remote large territorial ischemia or hemorrhage. Cerebral volumes are appropriate for age. There are no findings of chronic small-vessel ischemic disease. ASSESSMENT AND PLAN: Ms. Clark is a 62-year-old fysvj-ldda-atcuuweu woman admitted to [facility] with a rash and new-onset seizures in the setting of an enhancing lesion in the left anterior precuneus gyrus. The patient's neurological examination is nonfocal. Her laboratory data and other diagnostic studies have been reviewed and are documented above. The lesion seen on both the CT of the brain and MRI of the brain does not represent ischemia or hemorrhage. In my opinion, it is unlikely this is a developmental anomaly. I agree with the differential diagnosis provided by the neuroradiologist of primary central nervous system lymphoma, primary central nervous system neoplasm (glioblastoma multiforme). A metastatic lesion is a possibility as well. However, Ms. Clark reports being up-to-date on both her mammogram and colonoscopy. Her most recent mammogram was performed in 2018 and was reportedly negative/unremarkable. The patient last underwent a colonoscopy approximately 5 or 6 years ago. No abnormalities were found, and the patient was told to have a repeat colonoscopy performed in 10 years. As indicated in the report from the MRI of the brain with and without contrast, an infectious etiology is another possibility. However, Ms. Clark previously underwent a lumbar puncture at [facility] which was reportedly negative for evidence of infection. The medical records from the patient's recent hospitalization, specifically laboratory data and reports of all diagnostic studies including electroencephalograms, will be obtained for review. OTHER RECOMMENDATIONS: As follows: 1. Discontinue treatment with Dilantin as this is the likely source of the patient's rash/pruritus. Treatment with Keppra will be continued, but the dose will be increased to 2000 mg by mouth twice daily. 2. Ms. Clark will be given hydroxyzine 25 mg by mouth every 6 hours as needed for itching. 3. A routine EEG will be ordered for further evaluation of the patient's seizure activity. 4. CTs of the chest, abdomen, and pelvis with and without contrast will be ordered to evaluate for primary malignancy. 5. Dr. Anatoly De La Cruz will be consulted for his impression and recommendations regarding the previously described ACCOUNTS ADMINISTRATOR lesion. 6. Defer treatment of the remaining medical comorbidities to the primary and other services following the patient. Thank you for this consultation. I will continue to follow the patient while she remains in the hospital. TIME SPENT: 70 minutes. Job#: [id number] DR HILARIO
[2018-08-26] MEDS ORDERED: IOPAMIDOL 370 MG/ML 200 ML INFUS..BTL INJ ONE (01:51)
[2018-08-26] MEDS ORDERED: SODIUM CHLORIDE 0.9% 50ML 50 ML ONE (01:51)
[2018-08-26 05:54] LABS: ALANINE AMINOTRANSFERASE 19 IU/L (0-55); ALBUMIN 3.3 g/dL (3.5-5.0); ALBUMIN/GLOBULIN RATIO 1.1 (0.8-2.0); ALKALINE PHOSPHATASE 55 IU/L (40-150); ANION GAP 15.4 mmol/L (8-16); BLOOD UREA NITROGEN 11 mg/dL (7-26); BUN/CREATININE RATIO 15 (6-25); CALCIUM 8.6 mg/dL (8.4-10.2); CARBON DIOXIDE 21 mmol/L (22-29); CHLORIDE 103 mmol/L (98-107); CREATININE, SERUM 0.73 mg/dL (0.57-1.11); EST GLOMERULAR FILTRATION RATE > 60 ML/MIN (60-); GLUCOSE 63 mg/dL (74-118); MAGNESIUM 2.1 MG/DL (1.3-2.1); POTASSIUM 3.4 mmol/L (3.5-5.1); SODIUM 136 mmol/L (136-145)
[2018-08-26 08:00] VITALS: BP 131/63
[2018-08-26] MEDS: LEVETIRACETAM 500 MG TAB PO SCH (08:50)
--- NOTE | 2018-08-26 10:39 | NUR ---
Dr Navarro and Dr De La Cruz in to see patient. patient to be transferred to [facility] for brain tumor biopsy stat. case management notified and chart being copied.
--- NOTE | 2018-08-26 10:56 | NUR ---
CM SPOKE TO PATIENT REGARDING TRANSFER TO [facility] FOR BRAIN BIOPSY. PATIENT AND PATIENT FAMILY AWARE AND VERBALLY AGREED TO INITIATE TRANSFER. CHOICE LETTER SIGNED AND PLACED IN CHART. CM CALLED [facility] AT [phone] AND SPOKE TO REP JAGJIT FOR TRANSFER CENTER. CLINICAL GIVEN TO JAGJIT OVER THE PHONE. TRANSFER INITIATED. PENDING ACCEPTANCE AND BED ASSIGNMENT. MOT INITIATED AND PLACED ON CHART.
--- NOTE | 2018-08-26 11:13 | NUR ---
transfer to [facility] arranged and report called. ambulance in [facility].
--- NOTE | 2018-08-26 13:56 | Consultation ---
DATE OF CONSULTATION: August 26, 2018 REASON FOR CONSULTATION: Brain tumor. HISTORY OF PRESENT ILLNESS: Patient is a 62-year-old previously healthy woman who presented with a new onset seizure to another hospital on Thursday. On that day, she had a second smaller generalized seizure. She underwent a lumbar puncture which was negative. She underwent CT and MRI of the brain which revealed a left deep parietooccipital enhancing lesion. She was placed on Keppra and Dilantin and discharged home to follow up with the neurology service subsequently. However, over the weekend, she developed a significant rash and was readmitted to [facility] yesterday. She was evaluated by the neurology service. Her Dilantin was discontinued. She was kept on Keppra. She has had no seizures since then. She is alert and lucid but feels unsteady. CT and MRI of the brain were repeated at this hospital and I was consulted. PHYSICAL EXAMINATION GENERAL: The patient is alert and oriented with intact memory and fluent speech. She feels tired and not quite herself. HEENT: Visual sloan are full to confrontation. Extraocular movements are intact. Pupils are equal and reactive to light. Facial motor and sensory function are symmetric. The tongue protrudes in midline. MUSCULOSKELETAL/NEUROLOGIC: Motor strength is symmetric. She is able to stand and walk on her own but her gait is unstable. She cannot perform tandem gait. Deep tendon reflexes are symmetric. Plantar responses are flexor. MRI of the brain reveals a 2-cm homogeneously enhancing lesion within the depths of the parietooccipital junction, just posterior to the hippocampus and demonstrating no significant surrounding vasogenic edema or mass effect. 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 Her lumbar puncture has been reportedly negative at the other hospital. The patient will be transferred today to [facility] to undergo a stereotactic biopsy of this lesion. The risks and benefits of the operation have been explained in detail to the patient and her including the risks of intraoperative intracerebral hemorrhage and resultant neurological deficit. She understands all these issues and gives informed consent to proceed with the transfer and the operation. Job#: [id number] HARDIK
--- NOTE | 2018-08-26 14:36 | Discharge Summary ---
DISCHARGE DIAGNOSES: 1. Brain mass. This is a suspected lymphoma. 2. New-onset seizures. 3. Rash. HISTORY OF PRESENT ILLNESS: Ms. Clark is a pleasant 62-year-old lady, patient of Dr. 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 According to the history, the patient was doing well until the last days of July when she had the sudden onset of disorientation and she was taken to the emergency department at [facility] where workup revealed that she had a new-onset seizure disorder, and then she was discharged home on a combination of Keppra, phenytoin and levofloxacin. A few days after starting these medications, the patient developed significant rash and came back to a different emergency department over at [facility] where a CT scan of the brain was significant for a mass lesion in the occipital area. This was followed by an MRI that did confirm the finding of a 1.4 solid lesion, and a consultation has been requested with a neurosurgeon, Dr. De La Cruz, who believes this is a more likely brain tumor, possibly a lymphoma. The patient needs to be transferred emergently to [facility] to proceed with stereotactic brain biopsy. All arrangements have been made, and the patient is in agreement with this course of action. MORGAN MARTINEZ MD Job#: [id number] EV
== END 2018-08-26 11:38 | disposition other institution (70) ==
LOC: ER 08:29 → ERHOLD 12:37 → IMCU 13:20
PROVIDERS: ADMIT Internal Medicine; ATTEND Internal Medicine
DX: G93.9 Disorder of brain, unspecified (principal); R41.82 Altered mental status, unspecified; L20.9 Atopic dermatitis, unspecified; Z88.0 Allergy status to penicillin; R56.9 Unspecified convulsions; E87.6 Hypokalemia; D89.89 Other specified disorders involving the immune mechanism, not elsewhere classified
CPT/HCPCS: 36415 ×2; 70450; 70553; 71045; 71260; 74177; 80053 ×2; 80185; 80307; 80329 ×2; 81001; 82140; 82550; 82553; 83605; 83735 ×2; 84443; 84484; 85025; 85610; 85651; 85730; 87040; 87086; 93005; 95816; 99284; G0378 ×2; J3410 ×2; J7030; Q9967

== ENCOUNTER 2018-09-03 18:44 | Emergency (ER) | payer OTHER ==
[~2018-09-03] VITALS: Ht 170.2 cm; Wt 77.1 kg
[~2018-09-03 18:44] MED LIST: FOLIC ACID1 MG PO; KEPPRA500 MG PO; LEVAQUIN500 MG PO; METHOTREXATE2.5 MG PO; PHENYTOIN SODI300 MG PO
--- OUTSIDE RECORDS SUMMARY | 2018-09-03 18:47 | XMS REPORT | Clinical Summary ---
Author Author NATHAN [facility] Address Unknown Phone Unavailable Care Team Providers Care Binding End Stitcher Name Role Phone PCP Unavailable Allergies Not on File Medications Not on file Active Problems Not on file Encounters Care Team Description Date Type Specialty Raji Mcconnell MD Brain tumor (HCC) (Primary Dx) 08/31/2018 Orders Only Lab after 09/02/2017 Social History Date Tobacco Use Types Packs/Day Years Used Never Assessed Sex Assigned at Date Recorded Not on file Industry Job Start Date Occupation Not on file Not on file Not on file Travel End Travel History Travel Start No recent travel history available. Last Filed Vital Signs Not on file Plan of Treatment Not on file Results Not on fileafter 09/02/2017 Insurance Payer Benefit Subscriber ID Type Phone Address Plan / Group [facility] H[facility]/POS CARE POS [employer] CHOICE [place] (Home) [place] [address]
--- OUTSIDE RECORDS SUMMARY | 2018-09-03 18:47 | XMS REPORT | Clinical Summary ---
Author Author [employer] [facility] Organization [facility] Address Unknown Phone Unavailable Care Team Providers Care Faculty Research Physician Name Role Phone Nathaniel Wilkins MD PCP [...] total) by mouth nightly for 30 days. 08/23/2018 Discontinued methotrexate 2.5 MG Take by mouth 0 tablet once a week. TAKE 6 TABS BY MOUTH EVERY WEEK 08/26/2018 levoFLOXacin (LEVAQUIN) Take 1 tablet 3 tablet 0 500 MG tablet (500 mg 8 total) by mouth daily for 3 days. Active Problems Problem Noted Date Nonintractable epilepsy [...] not intractable, without status epilepticus (HCC) 08/20/2018 [facility] General Internal Medicine - Encounter 08/23/2018 Hoang Larry RT 08/20/2018 Orders Only Radiology after 09/02/2017 Immunizations Name Dates Previously Given Next Due [...] Taken Vital Sign Reading 08/23/2018 8:13 AM [employer] Blood Pressure 150/72 08/23/2018 8:24 AM [employer] Pulse 81 08/23/2018 8:13 AM [employer] Temperature 36.7 C (98 F) 08/23/2018 8:24 AM [employer] Respiratory Rate 17 08/23/2018 8:13 AM [employer] Oxygen Saturation 93% - Inhaled Oxygen - Concentration 08/20/2018 6:07 PM [employer] Weight 80.8 kg (178 lb 2.1 oz) 08/20/2018 6:07 PM [employer] Height 172.7 cm (5' 8") 08/20/2018 6:07 PM [employer] Body Mass Index 27.08 Plan of Treatment Health Maintenance Due Date Last Done Comments CERVICAL CANCER SCREENING 1978 BREAST CANCER SCREENING 2007 COLON CANCER SCREENING 2007 SHINGLES VACCINES (1 of 2007 2) INFLUENZA VACCINE Completed 08/23/2018, 08/24/2016 Procedures Comments Procedure Name Priority Date/Time Associated Diagnosis VANCOMYCIN LEVEL, TROUGH Timed 08/23/2018 5:40 AM [employer] ESTIMATED GFR Routine 08/23/2018 5:40 AM [employer] IONIZED CALCIUM Routine 08/23/2018 5:40 AM [employer] PHOSPHORUS LEVEL Routine 08/23/2018 5:40 AM [employer] HC COMPLETE BLD COUNT Routine 08/23/2018 W/AUTO DIFF 5:40 AM [employer] MAGNESIUM LEVEL Routine 08/23/2018 5:40 AM [employer] BASIC METABOLIC PANEL Routine 08/23/2018 5:40 AM [employer] POC GLUCOSE Routine 08/22/2018 12:40 PM [employer] EEG VIDEO MONITORING Routine 08/22/2018 11:17 AM [employer] EEG VIDEO MONITORING Routine 08/22/2018 11:16 AM [employer] POC GLUCOSE Routine 08/22/2018 8:47 AM [employer] POC GLUCOSE Routine 08/22/2018 4:46 AM [employer] PHENYTOIN LEVEL Routine 08/22/2018 4:40 AM [employer] ESTIMATED GFR Routine 08/22/2018 4:40 AM [employer] VANCOMYCIN LEVEL, TROUGH Timed 08/22/2018 4:40 AM [employer] MAGNESIUM LEVEL Routine 08/22/2018 4:40 AM [employer] BASIC METABOLIC PANEL Routine 08/22/2018 4:40 AM [employer] IONIZED CALCIUM Routine 08/22/2018 4:40 AM [employer] HC COMPLETE BLD COUNT Routine 08/22/2018 W/AUTO DIFF 4:40 AM [employer] PHOSPHORUS LEVEL Routine 08/22/2018 4:40 AM [employer] XR CHEST 1 VW PORTABLE Routine 08/22/2018 2:48 AM [employer] POC GLUCOSE Routine 08/22/2018 12:40 AM [employer] POC GLUCOSE Routine 08/21/2018 9:12 PM [employer] POC GLUCOSE Routine 08/21/2018 4:54 PM [employer] ARTERIAL BLOOD GAS Routine 08/21/2018 4:22 PM [employer] POC GLUCOSE Routine 08/21/2018 2:33 PM [employer] MRI BRAIN W WO CONTRAST STAT 08/21/2018 2:19 PM [employer] ARTERIAL BLOOD GAS Routine 08/21/2018 11:35 AM [employer] POC GLUCOSE Routine 08/21/2018 9:17 AM [employer] XR CHEST 1 VW PORTABLE Routine 08/21/2018 6:05 AM [employer] LACTIC ACID LEVEL Routine 08/21/2018 5:30 AM [employer] POC GLUCOSE Routine 08/21/2018 5:07 AM [employer] ARTERIAL BLOOD GAS Routine 08/21/2018 4:40 AM [employer] PHENYTOIN LEVEL Routine 08/21/2018 1:21 AM [employer] ESTIMATED GFR Routine 08/21/2018 1:21 AM [employer] MAGNESIUM LEVEL Routine 08/21/2018 1:21 AM [employer] BASIC METABOLIC PANEL Routine 08/21/2018 1:21 AM [employer] IONIZED CALCIUM Routine 08/21/2018 1:21 AM [employer] HC COMPLETE BLD COUNT Routine 08/21/2018 W/AUTO DIFF 1:21 AM [employer] PHOSPHORUS LEVEL Routine 08/21/2018 1:21 AM [employer] LACTIC ACID LEVEL, SEPSIS Timed 08/21/2018 - NOW AND REPEAT 2X EVERY 1:21 AM [employer] 3 HOURS POC GLUCOSE Routine 08/21/2018 1:03 AM [employer] LACTIC ACID LEVEL, SEPSIS Timed 08/20/2018 - NOW AND REPEAT 2X EVERY 9:55 PM [employer] 3 HOURS INTUBATION Routine 08/20/2018 Encephalopathy 9:39 PM [employer] ARTERIAL BLOOD GAS Routine 08/20/2018 9:35 PM [employer] METHOTREXATE LEVEL Routine 08/20/2018 9:10 PM [employer] ARTERIAL BLOOD GAS STAT 08/20/2018 6:30 PM [employer] EEG SLEEP/COMA Routine 08/20/2018 6:16 PM [employer] ARTERIAL BLOOD GAS STAT 08/20/2018 6:05 PM [employer] XR CHEST 1 VW PORTABLE STAT 08/20/2018 5:08 PM [employer] BLOOD CULTURE, AEROBIC & Routine 08/20/2018 ANAEROBIC 4:20 PM [employer] BLOOD CULTURE, AEROBIC & Routine 08/20/2018 ANAEROBIC 4:13 PM [employer] SYPHILIS TREPONEMAL IGG Routine 08/20/2018 4:10 PM [employer] XR CHEST 1 VW PORTABLE STAT 08/20/2018 3:57 PM [employer] LACTIC ACID LEVEL, SEPSIS Timed 08/20/2018 - NOW AND REPEAT 2X EVERY 3:40 PM [employer] 3 HOURS RAPID HIV 1 & 2 Routine 08/20/2018 3:40 PM [employer] SEDIMENTATION RATE Routine 08/20/2018 3:40 PM [employer] VITAMIN B12 LEVEL Routine 08/20/2018 3:40 PM [employer] AMMONIA LEVEL Routine 08/20/2018 3:40 PM [employer] HERPES SIMPLEX VIRUS BY Routine 08/20/2018 PCR 3:40 PM [employer] VARICELLA ZOSTER BY PCR Routine 08/20/2018 3:40 PM [employer] GLUCOSE LEVEL, CSF Routine 08/20/2018 3:20 PM [employer] PROTEIN, CSF Routine 08/20/2018 3:20 PM [employer] CSF CELL COUNT WITH Routine 08/20/2018 DIFFERENTIAL 3:20 PM [employer] GRAM STAIN Routine 08/20/2018 3:20 PM [employer] CSF CULTURE Routine 08/20/2018 3:20 PM [employer] THYROID STIMULATING Routine 08/20/2018 HORMONE 1:59 PM [employer] ALCOHOL LEVEL, BLOOD STAT 08/20/2018 1:59 PM [employer] SALICYLATE LEVEL STAT 08/20/2018 1:59 PM [employer] ACETAMINOPHEN LEVEL STAT 08/20/2018 1:59 PM [employer] ECG 12-LEAD STAT 08/20/2018 1:56 PM [employer] URINALYSIS SCREEN AND STAT 08/20/2018 MICROSCOPY, WITH REFLEX 1:44 PM [employer] TO CULTURE URINE DRUGS OF ABUSE STAT 08/20/2018 SCREEN 1:44 PM [employer] GRAM STAIN STAT 08/20/2018 1:44 PM [employer] URINE CULTURE STAT 08/20/2018 1:44 PM [employer] CT ANGIOGRAM HEAD W WO STAT 08/20/2018 CONTRAST 1:43 PM [employer] CT ANGIOGRAM NECK W WO STAT 08/20/2018 CONTRAST 1:42 PM [employer] CT STROKE BRAIN WO STAT 08/20/2018 CONTRAST 1:22 PM [employer] TROPONIN STAT 08/20/2018 1:08 PM [employer] CREATINE KINASE, TOTAL STAT 08/20/2018 (CPK) 1:08 PM [employer] ESTIMATED GFR STAT 08/20/2018 1:08 PM [employer] AMMONIA LEVEL STAT 08/20/2018 1:08 PM [employer] COMPREHENSIVE METABOLIC STAT 08/20/2018 PANEL 1:08 PM [employer] PROTHROMBIN TIME WITH INR STAT 08/20/2018 1:08 PM [employer] PARTIAL THROMBOPLASTIN STAT 08/20/2018 TIME (PTT) 1:08 PM [employer] HC COMPLETE BLD COUNT STAT 08/20/2018 W/AUTO DIFF 1:08 PM [employer] ECG ED PRELIMINARY Routine 08/20/2018 INTERPRETATION 1:04 PM [employer] MO SPINAL Routine 08/20/2018 PUNCTURE,LUMBAR,DIAGNOSTI 1:04 PM [employer] C MO CRITICAL CARE, ADDL 30 Routine 08/20/2018 MIN 1:04 PM [employer] MO CRITICAL CARE, E/M Routine 08/20/2018 30-74 MINUTES 1:04 PM [employer] after 09/02/2017 Results * Estimated GFR (08/23/2018 5:40 AM [employer]) Only the most recent of 4 results within the time period is included. Estimated GFR >=90 mL/min/1.73 m2 [facility] Comment: [facility] CatergoryUnitsInte rpretation G1 >=90 Normal or high G2 60-89Mildly decreased M2b73-69 Mildly to moderately decreased Q9c11-82 Moderately to severely decreased G4 15-29Severely decreased G5 <15Kidney failure The eGFR was calculated using the Chronic Kidney Disease Epidemiology Collaboration (CKD-EPI) equation. Interpretation is based on recommendations of the National Kidney Foundation-Kidney Disease Outcomes Quality Initiative (NKF-KDOQI) published in 2014. Specimen Plasma specimen Performing Organization Address City/State/Zipcode Phone Number [facility] [place] [address] [place] [address] PATHOLOGY AND GENOMIC MEDICINE [facility] [address] [place] [address] * CBC with platelet and differential (08/23/2018 5:40 AM [employer]) Only the most recent of 4 results within the time period is included. WBC 8.2 4.5 - 11.0 k/uL [facility] RBC 3.44 (L) 4.20 - 5.50 m/uL [facility] HGB 10.6 (L) 12.0 - 16.0 g/dL [facility] HCT 32.3 (L) 37.0 - 47.0 % [facility] MCV 93.9 82.0 - 100.0 fL [facility] MCH 30.8 27.0 - 34.0 pg [facility] MCHC 32.8 31.0 - 37.0 g/dL [facility] RDW - SD 47.3 37.0 - 55.0 fL [facility] MPV 11.0 6.9 - 11.0 fL [facility] Platelet count 179 150 - 400 K/uL [facility] Nucleated RBC 0.00 /100 WBC [facility] Neutrophils 67.2 39.0 - 69.0 % [facility] Lymphocytes 22.9 (L) 25.0 - 45.0 % [facility] Monocytes 8.1 0.0 - 10.0 % [facility] Eosinophils 0.2 0.0 - 5.0 % [facility] Basophils 0.9 0.0 - 1.0 % [facility] Immature granulocytes 0.7 0.0 - 1.0 % [facility] Specimen Blood Performing Organization Address City/[facility] [place] [address] PATHOLOGY AND [facility] MEDICINE [address] * Phosphorus level (08/23/2018 5:40 AM [employer]) Only the most recent of 3 results within the time period is included. Phosphorus 2.7 2.4 - 4.5 mg/dL [facility] Specimen Plasma specimen Performing Organization Address City/[facility]/[place] [address] PATHOLOGY AND GENOMIC MEDICINE [address] * Magnesium level (08/23/2018 5:40 AM [employer]) Only the most recent of 3 results within the time period is included. Magnesium 2.2 1.6 - 2.4 mg/dL [facility] Specimen Plasma specimen Performing Organization Address City/[facility]/Zipcode Phone Number [facility] DEPARTMENT OF [address] [place] [address] PATHOLOGY AND GENOMIC MEDICINE [address] * Ionized calcium (08/23/2018 5:40 AM [employer]) Only the most recent of 3 results within the time period is included. pH 7.44 [facility] Ionized calcium 1.06 (L) 1.11 - 1.32 mmol/L [facility] Specimen Plasma specimen Performing Organization Address City/[facility] Cent[facility]ode Phone Number [facility] [place] [address] PATHOLOGY AND GENOMIC MEDICINE [address] * Vancomycin level, trough (08/23/2018 5:40 AM [employer]) Only the most recent of 2 results within the time period is included. Vancomycin, trough 11.3 10.0 - 20.0 ug/mL [facility] Therapeutic Ranges: Peak30.0 - 40.0 ug/mL Oskarw26.0 - 20.0 ug/mL Specimen Blood Performing Organization Address [facility] [place] [address] PATHOLOGY AND [facility] MEDICINE [address] * Basic metabolic panel (08/23/2018 5:40 AM [employer]) Only the most recent of 3 results within the time period is included. Sodium 141 135 - 148 mEq/L [facility] Potassium 3.3 (L) 3.5 - 5.0 mEq/L [facility] Chloride 105 98 - 112 mEq/L [facility] CO2 27 24 - 31 mEq/L [facility] Anion gap 9@ANIO 7 - 15 mEq/L [facility] BUN 10 8 - 23 mg/dL [facility] Creatinine 0.68 0.50 - 0.90 mg/dL [facility] Glucose 99 65 - 99 mg/dL [facility] Calcium 8.5 (L) 8.8 - 10.2 mg/dL [facility] Specimen Plasma specimen Performing Organization Address City/State/Zipcode Phone Number [facility] [place] [address] [place] [address] PATHOLOGY AND GENOMIC MEDICINE [facility] [address] * POC glucose (08/22/2018 12:40 PM [employer]) Only the most recent of 10 results within the time period is included. POC glucose 112 (H) 65 - 99 mg/dL [facility] Comment: [facility] RN Notified Meter ID: [id number] Epic Ambulatory Analysts: Larson Yaron Performing Organization Address City/[facility]/Zipcode Phone Number [facility] [place] [address] [place] [address] PATHOLOGY AND GENOMIC MEDICINE [facility] [id number] [place] [address] * Continuous EEG monitoring (08/22/2018 11:17 AM [employer]) Narrative Performed At [facility] DEPARTMENT OF Date of Study Completion:August [...] of this extended tracing. Performing Organization Address City/[facility] Phone Number [facility] [place] [address] [place] [address] PATHOLOGY AND GENOMIC MEDICINE * Continuous EEG monitoring (08/22/2018 11:16 AM [employer]) Narrative Performed At [facility] DEPARTMENT OF Date of Study Completion: [...] of this extended tracing. Performing Organization Address [facility] Centercode Phone Number [facility] [place] [address] [place] [phone] PATHOLOGY AND GENOMIC MEDICINE * Phenytoin level (08/22/2018 4:40 AM [employer]) Only the most recent of 2 results within the time period is included. Phenytoin 15.4 10.0 - 20.0 ug/mL [facility] Comment: [facility] Therapeutic Range: 10 - 20 ug/mL Specimen Plasma specimen Performing Organization Address City/[facility] Phone Number [facility] [place] [address] PATHOLOGY AND GENOMIC MEDICINE [address] * XR Chest 1 Vw Portable (08/22/2018 2:48 AM [employer]) Only the most recent of 4 results within the time period is included. Narrative Performed At EXAMINATION:XR CHEST 1 VW PORTABLE [facility] CLINICAL HISTORY:Shortness of breath, Ventilator Patient COMPARISON:Most Recent IMPRESSION: Heart and mediastinum are stable. Increased pulmonary vascular congestion and left basilar patchy opacities. [facility]-[id number] Procedure Note Hm Interface, Radiology Results Incoming - 08/22/2018 6:11 AM [employer] EXAMINATION: XR CHEST 1 VW PORTABLE CLINICAL HISTORY: Shortness of breath, Ventilator Patient COMPARISON: Most Recent IMPRESSION: Heart and mediastinum are stable. Increased pulmonary vascular congestion and left basilar patchy opacities. [facility]-[id number] Performing Organization Address [facility] Centercomi Phone Number [facility] [address] [place] [address] * Arterial blood gas (08/21/2018 4:22 PM [employer]) Only the most recent of 6 results within the time period is included. pH, arterial 7.36 7.35 - 7.45 [facility] pCO2, arterial 50 (H) 35 - 45 mmHg [facility] pO2, arterial 147 (H) 80 - 90 mmHg [facility] Bicarbonate, arterial 27.6 21.0 - 28.0 mmol/L [facility] Base excess, arterial 2 -2 - 2 mEq/L [facility] O2 saturation, arterial 99 95 - 100 % [facility] Specimen Blood Performing Organization Address City/[facility]/Zipcode Phone Number [facility] [place] [address] PATHOLOGY AND GENOMIC MEDICINE [address] [place] [address] [facility] * MRI Brain W Wo Contrast (08/21/2018 2:19 PM [employer]) Narrative Performed At [facility] EXAMINATION: MRI BRAIN W WO CONTRAST CLINICAL [...] seen in patients with a recent seizure. [facility]-[id number] Procedure Note Interface, Radiology Results Incoming - 08/21/2018 2:30 PM [employer] EXAMINATION: MRI BRAIN W WO CONTRAST CLINICAL [...] seen in patients with a recent seizure. [facility]-[id number] Performing Organization Address City/[facility] Centercode Phone Number [facility] [address] [place] [address] * Lactic acid level (08/21/2018 5:30 AM [employer]) Lactic acid 2.3 (H) 0.5 - 2.2 mmol/L [facility] Specimen Plasma specimen Performing Organization Address [facility] Phone Number [facility] DEPARTMENT OF [address] [place] [address] PATHOLOGY AND GENOMIC MEDICINE [address] * Lactic acid level, SEPSIS - Now and repeat 2x every 3 hours (08/21/2018 1:21 AM [employer]) Only the most recent of 3 results within the time period is included. Lactic acid 2.5 (H) 0.5 - 2.2 mmol/L [facility] Specimen Plasma specimen Performing Organization Address [facility] Phone Number [facility] [place] [address] PATHOLOGY AND GENOMIC MEDICINE [address] * Intubation (08/20/2018 9:39 PM [employer]) Narrative Performed At Rod Mancilla MD 08/20/20189:41 PM Intubation Date/Time: 08/20/2018 9:39 PM Performed by: Rod Mancilla MD Authorized by: Rod Mancilla MD Consent: Consent obtained:Verbal Consent given by:Spouse Risks discussed:Aspiration, bleeding, hypoxia, dental trauma, laryngeal injury and pneumothorax Alternatives discussed:No treatment [place] protocol: Procedure explained and questions answered to [...] complications * Methotrexate level (08/20/2018 9:10 PM [employer]) Methotrexate <0.04 umol/L [facility] Comment: HOSPITAL _MXT results called to and read back by MARISSA MAYER (name/location) at100:03 (date/time) by _LSB. Specimen Blood Performing Organization Address City/State/Zipcode Phone Number [facility] DEPARTMENT OF [address] [place] [address] PATHOLOGY AND GENOMIC MEDICINE [place] SCIENTOLOGIST [address] [place] [address] * EEG (routine) (08/20/2018 6:16 PM [employer]) Narrative Performed At [facility] DEPARTMENT OF Date of Study Completion: [...] antiepileptic agent is recommended. Performing Organization Address [facility] Phone Number [facility] [place] [address] [place] [address] PATHOLOGY AND GENOMIC MEDICINE * Blood culture, aerobic & anaerobic (08/20/2018 4:20 PM [employer]) Only the most recent of 2 results within the time period is included. Blood culture isolate No growth after 5 days of [facility] incubation. HOSPITAL Comment: Specimen Information Specimen Source: Blood Specimen Site: Hand Specimen Blood - Hand Performing Organization Address [facility] Phone Number [facility] DEPARTMENT OF [address] [place] [address] PATHOLOGY AND GENOMIC MEDICINE [address] * Syphilis treponemal IgG (08/20/2018 4:10 PM [employer]) Syphilis treponemal IgG Non-reactiveComment: Non-reactive [facility] Non-reactive: No serological HOSPITAL evidence of Syphilis infection Specimen Serum Performing Organization Address [facility] Phone Number [facility] DEPARTMENT OF [address] [place] [address] PATHOLOGY AND GENOMIC MEDICINE [address] * Varicella zoster by PCR (08/20/2018 3:40 PM [employer]) VZV result Not-Detected Not-Detected copies/mL [facility] Varicella zoster, PCR See link below for PDF Lab [facility] ReportComment: Case Number: HOSPITAL [id number] Performing Organization Address City/State/Zipcode Phone Number [facility] DEPARTMENT OF [address] [place] [address] PATHOLOGY AND GENOMIC MEDICINE [address] * Rapid HIV 1 & 2 (08/20/2018 3:40 PM [employer]) Rapid HIV 1 and 2 Non-Reactive Non-Reactive [facility] Specimen Blood Performing Organization Address City/State/Zipcode Phone Number [facility] [place] [address] [place] [address] PATHOLOGY AND GENOMIC MEDICINE [facility] [address] [place] [address] * Herpes simplex virus by PCR (08/20/2018 3:40 PM [employer]) Herpes virus, PCR Not-Detected Not-Detected [facility] Herpes virus, PCR See link below for PDF Lab [facility] ReportComment: Case Number: HOSPITAL [id number] Performing Organization Address City/[facility]ode Phone Number [facility] DEPARTMENT OF [address] [place] [address] PATHOLOGY AND GENOMIC MEDICINE [address] * Sedimentation rate (08/20/2018 3:40 PM [employer]) Sedimentation rate 11 0 - 20 mm/hr [facility] Specimen Blood Performing Organization Address City/[facility]ode Phone Number [facility] [place] [address] [place] [address] PATHOLOGY AND GENOMIC MEDICINE [facility] [address] [place] [address] * Vitamin B12 level (08/20/2018 3:40 PM [employer]) Vitamin B12 556 211 - 946 pg/mL [facility] Comment: HOSPITAL Significant overlap exists between normal and deficiency states. However, most patients with deficiencies will have Serum B12 <200 pg/mL. Specimen Serum Performing Organization Address City/[facility]/Zipcode Phone Number [facility] DEPARTMENT OF [address] [place] [address] PATHOLOGY AND GENOMIC MEDICINE [address] * Ammonia level (08/20/2018 3:40 PM [employer]) Only the most recent of 2 results within the time period is included. Ammonia 58 (H) 11 - 51 umol/L [facility] Specimen Plasma specimen Performing Organization Address City/State/Zipcode Phone Number [facility] [place] [id number] [place] [address] PATHOLOGY AND GENOMIC MEDICINE [address] * Gram stain (08/20/2018 3:20 PM SUPERVIS[employer]) Only the most recent of 2 results within the time period is included. Gram stain isolate No WBC's or organisms seen. JAIDEN BENSON Comment: HOSPITAL Specimen Information Specimen Source: CSF (Spinal Fluid) Specimen Site: Tube 2 Specimen Cerebrospinal fluid - Tube 2 Performing Organization Address City/[facility] Phone Number [facility] [place] [address] PATHOLOGY AND GENOMIC MEDICINE [address] * CSF culture (08/20/2018 3:20 PM SUPERVIS[employer]) CSF culture isolate No growth after 3 days. JAIDEN BENSON Comment: HOSPITAL Specimen Information Specimen Source: CSF (Spinal Fluid) Specimen Site: Tube 2 Specimen Cerebrospinal fluid - Tube 2 Performing Organization Address [facility] Cent[facility] Phone Number [facility] [place] [address] PATHOLOGY AND GENOMIC MEDICINE [address] * CSF cell count with differential (08/20/2018 3:20 PM [employer]PER[employer]) CSF tube number Tube 3 [facility] Color, CSF Colorless [facility] Appearance, CSF Clear [facility] RBC, CSF 1 0 - 1 /CMM [facility] WBC, CSF 1 0 - 5 /CMM [facility] CSF mononuclear cell 1/CMM [facility] Specimen Cerebrospinal fluid Performing Organization Address City/[facility]/Zipcode Phone Number [facility] DEPARTMENT OF [address] [place] [address] PATHOLOGY AND GENOMIC MEDICINE [address] * Protein, CSF (08/20/2018 3:20 PM [employer]) Protein, CSF 49 (H) 15 - 45 mg/dL [facility] Specimen Cerebrospinal fluid Performing Organization Address City/[facility] Cent[facility]ode Phone Number [facility] [place] [address] PATHOLOGY AND GENOMIC MEDICINE [address] * Glucose level, CSF (08/20/2018 3:20 PM [employer]) Glucose, CSF 68 40 - 70 mg/dL [facility] Specimen Cerebrospinal fluid Performing Organization Address City/[facility]ode Phone Number [facility] [place] [address] PATHOLOGY AND GENOMIC MEDICINE [address] * Thyroid stimulating hormone (08/20/2018 1:59 PM [employer]) TSH 1.79 0.27 - 4.20 uIU/mL [facility] Specimen Blood Performing Organization Address City/[facility] Phone Number [facility] [place] [address] PATHOLOGY AND GENOMIC MEDICINE [address] * Alcohol level, blood (08/20/2018 1:59 PM [employer]) Alcohol None Detected mg/dL JAIDEN SCIENTOLOGIST Comment: [facility] Normal None Detected Legal Intoxication in [place]80 mg/dL (0.08%) - Whole Blood Toxic Concentration 200 mg/dL (0.2%) Potentially Fatal3 50 - 500 mg/dL (0.35 - 0.5%) Alcohol percent None Detected % [facility] Specimen Blood Performing Organization Address [facility] Phone Number [facility] [place] [address] PATHOLOGY AND GENOMIC MEDICINE [address] * Acetaminophen level (08/20/2018 1:59 PM [employer]) Acetaminophen level <8.3 10.0 - 30.0 ug/mL JAIDEN SCIENTOLOGIST Comment: [facility] Therapeutic 10-30 ug/mL Possible Toxicity 150-200 ug/mL Probable Toxicity >200 ug/mL Specimen Blood Performing Organization Address City/[facility]/Zipcode Phone Number [facility] [place] [address] PATHOLOGY AND GENOMIC MEDICINE [facility] [id number] [place] [address] * Salicylate level (08/20/2018 1:59 PM [employer]) Salicylate <0.4 (L) 3.0 - 30.0 mg/dL [facility] Specimen Blood Performing Organization Address City/[facility]/Zipcode Phone Number [place] [address] [place] [address] PATHOLOGY AND GENOMIC MEDICINE [address] * ECG 12 lead (08/20/2018 1:56 PM [employer]PER[employer]) Ventricular rate 91 [facility] Atrial rate 91 [facility] MO interval 144 [facility] QRSD interval 88 [facility] QT interval 384 [facility] QTC interval 472 [facility] P axis 1 81 [facility] QRS axis 1 91 [facility] T wave axis 85 [facility] EKG impression Normal sinus rhythm-No [facility] previous ECGs available- Narrative Performed At Performing Organization Address City/[facility] Centercode Phone Number [facility] [address] [place] [address] * Urinalysis screen and microscopy, with reflex to culture (08/20/2018 1:44 PM [employer]) Specimen site Clean catch [facility] Color, UA Yellow [facility] Appearance, UA Clear [facility] Specific gravity, UA >1.070 (H)Comment: Results 1.001 - 1.030 [facility] confirmed by another [facility] methodology pH, UA 5.0 5.0 - 9.0 [facility] Protein, UA Negative Negative [facility] Glucose, UA Negative Negative [facility] Ketones, UA Negative Negative [facility] Bilirubin, UA Negative Negative [facility] Blood, UA Negative Negative [facility] Nitrite, UA Negative Negative [facility] Urobilinogen, UA <2.0 <2.0 E.U./dL [facility] Leukocyte esterase, UA Small (A) Negative [facility] Epithelial cells, UA 1 /HPF [facility] Round epithelial cells, <1 0 - 5 /HPF [facility] WBC, UA 28 (H) 0 - 4 /HPF [facility] RBC, UA 1 0 - 5 /HPF [facility] Bacteria, UA Few None seen [facility] WBC clumps, UA Few (A) [facility] Yeast, UA None seen [facility] Yeast with pseudohyphae, None seen [facility] Hyaline casts, UA 0-2 /LPF [facility] Specimen Urine Performing Organization Address City/[facility]/[place] [address] PATHOLOGY AND GENOMIC MEDICINE [address] * Urine drugs of abuse screen (08/20/2018 1:44 PM SUPER[employer]) Amphetamine screen, urine Negative [facility] Barbiturate screen, urine Negative [facility] Benzodiazepine screen, Negative [facility] urine [facility] Cannabinoid screen, urine Negative [facility] Cocaine screen, urine Negative [facility] Methadone metabolite Negative [facility] (EDDP), urine [facility] Opiates screen, urine Negative [facility] Phencyclidine screen, Negative [facility] urine [facility] Tricyclic screen, urine Negative [facility] Comment: [facility] Drug screen minimum concentration of detectability Amphetamines [...] purposes only. Specimen Urine Performing Organization Address City/State/Zipcode Phone Number [facility] [id number] [place] [address] PATHOLOGY AND GENOMIC MEDICINE [address] * Urine culture (08/20/2018 1:44 PM [employer]PER[employer]) Urine culture isolate Escherichia coli JAIDEN BENSON >10-5 cfu/ml HOSPITAL The performance characteristics of this assay on this isolate were validated by the Microbiology Laboratory at [facility].This source has not been approved by the [...] Tigecycline JASON <=0.5 mcg/mL: Susceptible Escherichia coli Performing Organization Address City/State/Zipcode Phone Number [facility] OF [address] [place] [address] PATHOLOGY AND GENOMIC MEDICINE [facility] SCIENTOLOGIST [id number] HOSPITAL * CTA Head W Wo Contrast (08/20/2018 1:43 PM [employer]PER[employer]) Narrative Performed At EXAMINATION: CT ANGIOGRAM HEAD [...] markedly hypoplastic right transverse sinus. IMPRESSION: Patent soboba of Guan vasculature, without evidence of aneurysm or large vessel occlusion. [facility]-[id number] Procedure Note Hm Interface, Radiology Results Incoming - 08/20/2018 1:58 PM [employer] EXAMINATION: CT ANGIOGRAM HEAD W WO CONTRAST [...] markedly hypoplastic right transverse sinus. IMPRESSION: Patent soboba of Guan vasculature, without evidence of aneurysm or large vessel occlusion. [facility]-[id number] Performing Organization Address City/State/Zipcode Phone Number [facility] [address] [place] [address] * CTA Neck W Wo Contrast (08/20/2018 1:42 PM SUPER[employer]) Narrative Performed At EXAMINATION:CT ANGIOGRAM NECK W WO CONTRAST [facility] CLINICAL HISTORY:STROKE COMPARISON:None. TECHNIQUE: Neck CTA with [...] significant cervical carotid or vertebral artery stenosis. [facility]-[id number] Procedure Note Interface, Radiology Results [facility] - 08/20/2018 1:55 PM [employer] EXAMINATION: CT ANGIOGRAM NECK W WO CONTRAST [...] significant cervical carotid or vertebral artery stenosis. [facility]-[id number] Performing Organization Address City/State/Zipcode Phone Number [facility] [address] [place] [address] * CT Stroke Brain Wo Contrast (08/20/2018 1:22 PM SUPERVISOR [employer]) Narrative Performed At EXAMINATION:CT STROKE BRAIN WO CONTRAST [facility] CT IMAGING WAS PERFORMED WITH ITERATIVE RECONSTRUCTION [...] PM and acknowledged understanding of the findings. [id number] Procedure Note Interface, Radiology Results Incoming - 08/20/2018 1:35 PM [employer] EXAMINATION: CT STROKE BRAIN WO CONTRAST CT [...] PM and acknowledged understanding of the findings. [id number] Performing Organization Address City/State/Zipcode Phone Number [facility] [address] [place] [address] * Troponin (08/20/2018 1:08 PM [employer]PER[employer]) Troponin <0.30 0.00 - 0.30 ng/mL JAIDEN BENSON Comment: [facility] 0.11 - 1.49 ng/mlMay indicate increased risk of acute coronary syndrome. >=1.5 ng/ml Consistent with acute myocardial infarction. The diagnostic value of a single normal or non-diagnostic result is questionable.Serial samples at 2-6 hour intervals are required to rule out acute myocardial injury. Specimen Plasma specimen Performing Organization Address [facility] [place] [address] * Partial thromboplastin time, activated (08/20/2018 1:08 PM [employer]) PTT 24.3 23.0 - 36.0 sec [place] SCIENTOLOGIST Comment: [facility] PTT therapeutic range for unfractionated heparin is 61.0-112.0 seconds which corresponds to Anti-Xa 0.3-0.7 U/ml. Specimen Blood Performing Organization Address [facility] Phone Number [address] * Prothrombin time with INR (08/20/2018 1:08 PM SUPER[employer]) Prothrombin time 13.3 11.5 - 14.5 sec [facility] INR 1.0 [facility] Comment: [facility] The International Normalized Ratio (INR) is a therapeutic monitoring tool for patients who are stable on oral anticoagulant therapy. An INR of 2.0-3.0 is suggested for deep vein thrombosis/pulmonary embolism. Specimen Blood Performing Organization Address [facility] Centercode Phone Number [facility] DEPARTMENT OF [address] [place] [address] PATHOLOGY AND GENOMIC MEDICINE [address] * Creatine kinase, total (CPK) (08/20/2018 1:08 PM SUPER[employer]) Creatine kinase 95 26 - 192 U/L [facility] Specimen Plasma specimen Performing Organization Address City/[facility] [place] [address] PATHOLOGY AND [facility] MEDICINE [address] * Comprehensive metabolic panel (08/20/2018 1:08 PM SUPER[employer]) Sodium 142 135 - 148 mEq/L [facility] Potassium 3.9 3.5 - 5.0 mEq/L [facility] Chloride 106 98 - 112 mEq/L [facility] CO2 23 (L) 24 - 31 mEq/L [facility] Anion gap 13@ANIO 7 - 15 mEq/L [facility] BUN 11 8 - 23 mg/dL [facility] Creatinine 0.69 0.50 - 0.90 mg/dL [facility] Glucose 151 (H) 65 - 99 mg/dL [facility] Calcium 9.4 8.8 - 10.2 mg/dL [facility] Protein 7.3 6.3 - 8.3 g/dL [facility] Albumin 4.2 3.5 - 5.0 g/dL [facility] A/G ratio 1.4 0.7 - 3.8 [facility] Alkaline phosphatase 56 35 - 104 U/L [facility] AST 22 10 - 35 U/L [facility] ALT 25 5 - 50 U/L [facility] Total bilirubin <0.2 0.2 - 1.2 mg/dL [facility] Specimen Plasma specimen Performing Organization Address City/[facility]/[place] [address] PATHOLOGY AND GENOMIC MEDICINE [address] * ECG ED Preliminary Interpretation - Not an Order (08/20/2018 1:04 PM SUPER[employer]) Narrative Performed At Vanessa Lara DO 08/20/20189:08 PM ECG ED Preliminary Interpretation - Not an Order Performed by: Vanessa Lara DO Authorized by: Vanessa Lara DO ECG reviewed by ED Physician in the absence of a audiovisual librarian: yes Previous ECG: Previous ECG:Unavailable Interpretation: Interpretation: non-specific Rate: ECG rate:91 ECG rate assessment: normal Rhythm: Rhythm: sinus rhythm Ectopy: Ectopy: none QRS: QRS axis:Normal QRS intervals:Normal Conduction: Conduction: normal ST segments: ST segments:Normal T waves: T waves: normal Comments: Normal sinus rhythm.No evidence of acute NC. * CRITICAL CARE (08/20/2018 1:04 PM SUPER[employer]) Narrative Performed At Vanessa Lara DO 08/20/20189:08 PM Critical Care Performed by: Vanessa Lara DO Authorized by: Vanessa Lara DO Critical care provider statement: Critical care time (minutes):75 Critical care time was exclusive of:Separately billable procedures and treating other patients Critical care was necessary to treat or prevent imminent or life-threatening deterioration of the following conditions:Circulatory failure, THEATRICAL [employer]ESSER failure or compromise, sepsis, metabolic crisis and [...] no * Lumbar Puncture (08/20/2018 1:04 PM SU[employer]) Narrative Performed At Vanesas Lara DO 08/20/20189:08 PM Lumbar Puncture Performed by: Vanessa Lara DO Authorized by: Vanessa Lara DO Consent: Consent obtained:Written Consent given by:Spouse Risks discussed:Bleeding, headache, infection, nerve damage, pain, repeat procedure and CSF leak Alternatives discussed:No treatment, delayed treatment, alternative treatment, observation and referral [place] protocol: Procedure explained and questions answered to [...] of procedure:Tolerated well, no immediate complications after 09/02/2017 Insurance Payer Benefit Subscriber ID Type Phone Address Plan / Group [facility] xxxxxxxxx HMO/PPO THCARE CHOICE/CHO ICE + Advance Directives Patient has advance care planning documents on file. For more information, tam moralez contact: Jaiden Benson [address] [place] [address]
--- OUTSIDE RECORDS SUMMARY | 2018-09-03 18:48 | XMS REPORT | Continuity of Care Document ---
Author Author [facility] Interface Address Unknown Phone Unavailable Problems Problem Status Onset Date Classification Date Reported Comments Source CCL/ LHC Active 05/24/2018 [facility] Z12.31 - ENCNTR SCREEN MAMMOGRAM FOR MA Active 04/13/2018 [facility] [place] Upper respiratory infection 03/20/2017 Diagnosis 03/20/2017 [facility] Feeling feverish 03/20/2017 Diagnosis 03/20/2017 [facility] Headache 03/20/2017 Diagnosis 03/20/2017 [facility] Cough Problem 03/20/2017 [facility] Brain lesion Active Problem 08/26/2018 [facility] ETOHism Active Problem 08/26/2018 [facility] Hematoma Active Problem 08/26/2018 [facility] Hypokalemia Active Problem 08/26/2018 [facility] New onset seizure Active Problem 08/26/2018 [facility] Rash Active Problem 08/26/2018 [facility] Medications Medication Details Route Status Patient Instructions Ordering Provider Order Date Source benzonatate 100 MG Oral Capsule benzonatate 100 mg capsule Active [facility] Clonazepam 0.5 MG Oral Tablet clonazepam 0.5 mg tablet TK 1 T PO BID AND BEDTIME PRN Active [facility] Escitalopram 20 MG Oral Tablet escitalopram 20 mg tablet Active [facility] 200 ACTUAT Albuterol 0.09 MG/ACTUAT Metered Dose Inhaler [ProAir] ProAir HFA 90 mcg/actuation aerosol inhaler INHALE 2 PUFFS PO EVERY 4 HOURS Active [facility] betamethasone dipropionate 0.643 MG/ML / calcipotriene 0.05 MG/ML Topical Foam [Enstilar] Enstilar 0.005 %-0.064 % topical foam MAMADOU UTD BID TO RASH ON LEGS Active [facility] Ergocalciferol 71785 UNT Oral Capsule ergocalciferol (vitamin D2) 50,000 unit capsule Active [facility] levocetirizine dihydrochloride 5 MG Oral Tablet levocetirizine 5 mg tablet Active [facility] meloxicam 7.5 MG Oral Tablet meloxicam 7.5 mg tablet TK 1 T PO QD WITH FOOD Active [facility] Mupirocin 0.02 MG/MG Topical Ointment mupirocin 2 % topical ointment Active [facility] 0.5 ML Streptococcus pneumoniae serotype 1 capsular antigen diphtheria [id number] protein conjugate vaccine 0.0044 MG/ML / Streptococcus pneumoniae serotype 14 capsular antigen diphtheria [id number] protein conjugate vaccine 0.0044 MG/ML / Streptococcus pneumoniae serotype 18C capsular antigen diphtheria [id number] protein conjugate vaccine 0.0044 MG/ML / Streptococcus pneumoniae serotype 19A capsular antigen d iphtheria [id number] protein conjugate vaccine 0.0044 MG/ML / Streptococcus pneumoniae serotype 19F capsular antigen diphtheria [id number] protein conjugate vaccine 0.0044 MG/ML / Streptococcus pneumoniae serotype 23F capsular antigen diphtheria [id number] protein conjugate vaccine 0.0044 MG/ML / Streptococcus pneumoniae serotype 3 capsular antigen diphtheria [id number] protein conjugate vaccine 0.0044 MG/ML / Streptococcus pneumoniae serotype 4 capsular antigen diphtheria [id number] protein conjugate vaccine 0.0044 MG/ML / Streptococcus pneumoniae serotype 5 capsular antigen diphtheria [id number] protein conjugate vaccine 0.0044 MG/ML / Streptococcus pneumoniae serotype 6A capsular antigen diphtheria [id number] protein conjugate vaccine 0.0044 MG/ML / Streptococcus pneumoniae serotype 6B capsular antigen diphtheria [id number] protein conjugate vaccine 0.0088 MG/ML / Streptococcus pneumoniae serotype 7F capsular antigen diphtheria [id number] protein conjugate vaccine 0.0044 MG/ML / Streptococcus pneumoniae serotype 9V capsular antigen diphtheria [id number] protein conjugate vaccine 0.0044 MG/ML Prefilled Syringe [Prevnar 13] Prevnar 13 (PF) 0.5 mL intramuscular syringe ADM 0.5ML IM UTD Active [facility] valacyclovir 1000 MG Oral Tablet valacyclovir 1 gram tablet Active [facility] Folic Acid 1 Mg Tablet Daily Active [facility] Levetiracetam (Keppra) 500 Mg Tablet Twice A Day Active [facility] Levofloxacin (Levaquin) 500 Mg Tablet Three Times A Day Active [facility] Methotrexate Sodium (Methotrexate) 2.5 Mg Tablet Weekly Active [facility] Phenytoin Sodium Extended 300 Mg Capsule Bedtime Active [facility] Allergies, Adverse Reactions, Alerts Substance Category Reaction Severity Reaction type Status Date Reported Comments Source Penicillins Other Allergy to substance 06/07/2016 [facility] penicillin Unknown Allergy to Substance Active 08/25/2018 [facility] Immunizations Immunization Date Given Site Status Last Updated Comments Source pneumococcal, unspecified formulation 01/22/2017 completed [facility] influenza, unspecified formulation 08/24/2016 completed [facility] Results Order Name Results Value Reference Range Date Interpretation Comments Source Serum or plasma sodium measurement (moles/volume) 136 136 - 145 08/26/2018 [facility] Serum or plasma potassium measurement (moles/volume) 3.4 3.5 - 5.1 08/26/2018 [facility] Serum or plasma chloride measurement (moles/volume) 103 98 - 107 08/26/2018 [facility] Serum or plasma carbon dioxide, total measurement (moles/volume) 21 22 - 29 08/26/2018 [facility] Serum or plasma anion gap 15.4 8 - 16 08/26/2018 [facility] Serum or plasma urea nitrogen measurement (mass/volume) 11 7 - 26 08/26/2018 [facility] Serum or plasma creatinine measurement (mass/volume) 0.73 0.57 - 1.11 08/26/2018 [facility] Serum or plasma urea nitrogen/creatinine mass ratio 15 6 - 25 08/26/2018 [facility] Estimated glomerular filtration rate (GFR) determination > 60 60 08/26/2018 [facility] Glucose measurement 63 74 - 118 08/26/2018 [facility] Serum or plasma calcium measurement (mass/volume) 8.6 8.4 - 10.2 08/26/2018 [facility] Serum or plasma magnesium measurement (mass/volume) 2.1 1.3 - 2.1 08/26/2018 [facility] Serum or plasma total bilirubin measurement (mass/volume) 0.5 0.2 - 1.2 08/26/2018 [facility] Aspartate Amino Transf (AST/SGOT) 12 5 - 34 08/26/2018 [facility] Serum or plasma alanine aminotransferase measurement (enzymatic activity/volume) 19 0 - 55 08/26/2018 [facility] Serum or plasma protein measurement (mass/volume) 6.4 6.5 - 8.1 08/26/2018 [facility] Serum or plasma albumin measurement (mass/volume) 3.3 3.5 - 5.0 08/26/2018 [facility] Plasma globulin measurement (mass/volume) 3.1 2.3 - 3.5 08/26/2018 [facility] Serum or plasma albumin/globulin mass ratio 1.1 0.8 - 2.0 08/26/2018 [facility] Serum or plasma alkaline phosphatase measurement (enzymatic activity/volume) 55 40 - 150 08/26/2018 [facility] Urine color determination YELLOW YELLOW 08/25/2018 [facility] Urine clarity SL CLOUDY CLEAR 08/25/2018 [facility] Specific gravity of Urine by Test strip 1.025 1.010 - 1.025 08/25/2018 [facility] Urine pH measurement by automated test strip 8 5 - 7 08/25/2018 [facility] Urine leukocyte esterase detection by dipstick NEGATIVE NEGATIVE 08/25/2018 [facility] Urine nitrite detection NEGATIVE NEGATIVE 08/25/2018 [facility] Urine protein measurement by test strip (mass/volume) NEGATIVE NEGATIVE 08/25/2018 [facility] Urine glucose detection NEGATIVE NEGATIVE 08/25/2018 [facility] Urine ketones detection by automated test strip 2+ NEGATIVE 08/25/2018 [facility] Urine opiates screening test NEGATIVE NEGATIVE 08/25/2018 [facility] Barbiturates screen, urine POSITIVE NEGATIVE 08/25/2018 [facility] Urine phencyclidine detection by screening method NEGATIVE NEGATIVE 08/25/2018 [facility] Urine amphetamines detection by screen method > 1000 ng/mL POSITIVE NEGATIVE 08/25/2018 [facility] Urine Methamphetamines Screen NEGATIVE NEGATIVE 08/25/2018 [facility] Urine benzodiazepines detection by screening method POSITIVE NEGATIVE 08/25/2018 [facility] Urine cocaine measurement (mass/volume) NEGATIVE NEGATIVE 08/25/2018 [facility] Urine cannabinoids detection by screening method NEGATIVE NEGATIVE 08/25/2018 [facility] Urine methadone screen NEGATIVE NEGATIVE 08/25/2018 [facility] Urine urobilinogen measurement by test strip (mass/volume) 0.2 0.2 - 1 08/25/2018 [facility] Urine total bilirubin measurement (mass/volume) 1+ NEGATIVE 08/25/2018 [facility] Urine erythrocytes detection NEGATIVE NEGATIVE 08/25/2018 [facility] Automated urine sediment leukocyte count by microscopy (number/high power field) NONE 0 - 5 08/25/2018 [facility] Erythrocytes detection in urine sediment by light microscopy NONE 0 - 5 08/25/2018 [facility] Bacteria detection in urine sediment by light microscopy NONE NONE 08/25/2018 [facility] Epithelial cells detection in urine sediment by light microscopy RARE NONE 08/25/2018 [facility] Ammonia Ser-mCnc 73 31 - 123 08/25/2018 [facility] Blood leukocytes automated count (number/volume) 8.72 4.8 - 10.8 08/25/2018 [facility] Blood erythrocytes automated count (number/volume) 4.27 3.6 - 5.1 08/25/2018 [facility] Blood hemoglobin measurement (moles/volume) 13.1 12.0 - 16.0 08/25/2018 [facility] Automated blood hematocrit (volume fraction) 38.6 34.2 - 44.1 08/25/2018 [facility] Automated erythrocyte mean corpuscular volume 90.4 81 - 99 08/25/2018 [facility] Automated erythrocyte mean corpuscular hemoglobin (mass per erythrocyte) 30.7 28 - 32 08/25/2018 [facility] Automated erythrocyte mean corpuscular hemoglobin concentration measurement (mass/volume) 33.9 31 - 35 08/25/2018 [facility] RDW BldCo-Rto 13.8 11.7 - 14.4 08/25/2018 [facility] Automated blood platelet count (count/volume) 247 140 - 360 08/25/2018 [facility] Automated blood segmented neutrophil count as percentage of total leukocytes 72.8 38.7 - 80.0 08/25/2018 [facility] Automated blood lymphocyte count as percentage ot total leukocytes 16.3 18.0 - 39.1 08/25/2018 [facility] Automated blood monocyte count as percentage of total leukocytes 8.6 4.4 - 11.3 08/25/2018 [facility] Automated blood eosinophil count as percentage of total leukocytes 1.5 0.0 - 6.0 08/25/2018 [facility] Automated blood basophil count as percentage of total leukocytes 0.6 0.0 - 1.0 08/25/2018 [facility] IM GRANULOCYTES % 0.2 0.0 - 1.0 08/25/2018 [facility] Automated blood neutrophil count 6.4 2.1 - 6.9 08/25/2018 [facility] Blood lymphocytes count (number/volume) 1.4 1.0 - 3.2 08/25/2018 [facility] Blood monocytes automated count (number/volume) 0.8 0.2 - 0.8 08/25/2018 [facility] Automated blood eosinophil count 0.1 0.0 - 0.4 08/25/2018 [facility] Automated blood basophil count (count/volume) 0.1 0.0 - 0.1 08/25/2018 [facility] Absolute Immature Granulocyte (auto 0.02 0 - 0.1 08/25/2018 [facility] Erythrocyte sedimentation rate by Westergren method 16 0 - 20 08/25/2018 [facility] Prothrombin time (PT) in platelet poor plasma by coagulation assay 14.5 11.9 - 14.5 08/25/2018 [facility] INR in Platelet poor plasma by Coagulation assay 1.04 08/25/2018 [facility] Activated partial thromboplastin time (aPTT) in platelet poor plasma bycoagulation assay 25.5 23.8 - 35.5 08/25/2018 [facility] Lactic Acid Level 5.8 4.5 - 19.8 08/25/2018 [facility] Serum or plasma creatine kinase measurement (enzymatic activity/volume) 100 29 - 168 08/25/2018 [facility] Serum or plasma creatine kinase MB measurement (mass/volume) 0.50 0 - 5.0 08/25/2018 [facility] Troponin I measurement by highly sensitive enzyme immunoassay 0.045 0 - 0.300 08/25/2018 [facility] Serum or plasma acetaminophen measurement by screening method (mass/volume) < 3 10 - 30 08/25/2018 [facility] Serum or plasma thyrotropin measurement by detection limit <=0.005 miu/l (units/volume) 0.973 0.350 - 4.940 08/25/2018 [facility] Serum or plasma phenytoin measurement (mass/volume) 17.44 10 - 20 08/25/2018 [facility] Serum or plasma salicylates measurement (mass/volume) < 5.0 0 - 30 08/25/2018 [facility] Blood culture NO GROWTH AFTER 24 HOURS 08/25/2018 [facility] Breast Complete Uni US Breast Complete Uni US COMPLETE ULTRASOUND OF LEFT BREAST AND AXILLA: 05/24/2018 CLINICAL: /R92.8 Other Abnormal And Inconclusive Findings On Diagnostic Imaging Of Breast. COMPARISON:Comparison is made to exams dated: 05/24/2018 mammogram and 05/06/2018 mammogram - [facility]. TECHNIQUE: Color flow and real-time ultrasound of [...] demonstrate stability.(11/23/2018) This exam was interpreted at [id number] for [facility] [place] 15. Professional services are provided by the [facility] M[facility] [place] Division of Diagnostic Imaging. Rico Alegria M.D. cm/penrad:05/24/2018 14:16:37 [employer] Supervisor(s): Erika Shoemaker [facility] letter sent: BI-RADS 3 Ultrasound BI-RADS: 3 Probably benign 05/24/2018 - - Read by: Nils Gomez MD Dictated Date/time: 05/24/18 14:16 Electronically Signed by: Nils Gomez MD 05/24/18 14:16 FINAL REPORT BRANDON Cerda Breast Mammo Diag UNI incl CAD [...] made to exam dated: 05/06/2018 mammogram - [facility]. TECHNIQUE: Mammographic views were obtained using digital [...] is recommended. This exam was interpreted at [id number] for [facility] [place]. Professional services are provided by the [facility] Division of Diagnostic Imaging. Rico Alegria M.D. cm/penrad:05/24/2018 14:15:30 [employer] Supervisor(s): Andria Reardon RT(R)(M), [facility] Mammogram BI-RADS: 0 Indeterminate 05/24/2018 - - Read by: Nils Gomez MD Dictated Date/time: 05/24/18 14:15 Electronically Signed by: Nils Gomez MD 05/24/18 14:15 FINAL REPORT BRANDON Cerda Breast Mammo Scrn CITLALY incl CAD [...] interval change. This exam was interpreted at [id number] for [facility] [place]. Professional services are provided by the [facility] Division of Diagnostic Imaging. Rico Alegria M.D. cm/penrad:05/06/2018 08:45:28 [employer] Supervisor(s): RT Aliosn(R)(M), [facility] letter sent: BI-RADS 0 Mammogram BI-RADS: 0 Indeterminate 05/06/2018 - - Read by: Nils Gomez MD Dictated Date/time: 05/06/18 08:45 Electronically Signed by: Nils Gomez MD 05/06/18 08:45 FINAL REPORT DAISY Cerda Influenza A negative 03/20/2017 [facility] [...] Date Status Source [place] - [facility] - [id number] LISA RubalcavaP: [address] [place] [address], Ph. [id number] Leonel Greene 06/07/2016 [facility] [place] [facility] - [id number] FRANCOISE Canales-C: [address] [place] [address], Ph. [id number] Candida Javed 03/20/2017 [facility] Discharged Inpatient (obs) [id number] MORGAN MARTINEZ MD 08/25/2018 08/26/2018 [facility] Procedures Procedure Code Date Perfomer Comments Source Computed tomography of brain without radiopaque contrast [id number] 08/25/2018 [facility] Magnetic resonance imaging of brain without then with contrast [id number] 08/25/2018 [facility] Computed tomography of chest with contrast [id number] 08/25/2018 [facility] Computed tomography of abdomen and pelvis with contrast [id number] 08/25/2018 [facility] Hysterectomy 08/24/1989 [facility]
[2018-09-03] MEDS ORDERED: ALPRAZOLAM 0.25 MG TAB ONE (19:45)
[2018-09-03] MEDS ORDERED: ALPRAZOLAM 0.25 MG TAB PO ONE (19:45)
--- NOTE | 2018-09-03 20:30 | NUR ---
PT DC'D AT 2030
== END 2018-09-04 01:13 | disposition home or self-care (01) ==
LOC: ER 18:44
DX: F41.1 Generalized anxiety disorder (principal); G40.909 Epilepsy, unspecified, not intractable, without status epilepticus
CPT/HCPCS: 99283